=== PATIENT | male | born 1945 | race Caucasian/White ===

== ENCOUNTER 2018-03-08 17:16 | Inpatient (IN) ==
--- NOTE | 2018-03-08 18:53 | XR ---
EXAM DATE: 03/08/2018 6:39 PM EDT AGE/SEX: 72 years / Male INDICATIONS: . Shortness of breath CLINICAL DATA: This is the patient's initial encounter. Patient reports that signs and symptoms have been present for 1 day and indicates a pain score of 0/10. MEDICAL/SURGICAL HISTORY: . Gastroesophageal reflux disease. Chronic obstructive pulmonary dise ase. A-Fib. Hypertension. Arthritis. Skin cancer. . Colostomy. Oral surgery. Cardiac cath. Back surg sudarshan. COMPAR[place]: [facility] [place]. . FINDINGS: Spinal stimulator wires remain in place with previous fusion across the thoracolumbar junction. Stabl e elevated left hemidiaphragm. Bilateral mostly basilar opacity probably scarring and atelectasis. Ol d right rib fractures. No pneumothorax. CONCLUSION: Cardiomegaly with stable basilar density since 2016, probably scarring/fibrosis and atelectasis. Elev ated left hemidiaphragm. Electronically signed by: Priyank Santos MD 03/08/2018 6:52 PM EDT
--- NOTE | 2018-03-08 19:59 | ED ---
HPI General Chief Complaint: Respiratory Symptoms Stated Complaint: Patient states hard time breathing/back pain Time Seen by Provider: 03/08/18 19:53 Source: patient and family Mode of arrival: wheelchair Limitations: no limitations History of Present Illness 72-year-old male presents to the emergency department by private transportation the care of his spouse for complaint of progressively worsening shortness of breath over the past several weeks. Patient states he has been diagnosed with COPD since hospitalization 1 year ago at [facility] through the [place] system. Patient has been on Symbicort and does have a home nebulizer. Patient states that he was never given any medication to use in his nebulizer. Patient states he recently completed 2 courses of a Z-Arie and prednisone taper for his cough within the past 3 weeks. Patient reports symptoms improved but would recur and now worsening. Patient states cough is been productive of yellow and white phlegm. Patient states symptoms have not improved. Patient states that today he actually had a fever of 100.4 F prior to coming to the emergency room. Patient also has history of chronic indwelling suprapubic catheter secondary to neurogenic bladder secondary to sequela from T12-L1 fracture from injury sustained 16 years ago. Patient also has colostomy. Patient states he has had continued to have good urine output and normal bowel output and has not noticed any melena or hematochezia. Patient has had some right lower quadrant abdominal pain. Patient does not report any nausea vomiting or anorexia. Patient reportedly [facility] on [facility]. Due to patient's progressively worsening dyspnea on exertion he decided to present to the emergency department now instead of waiting until Tuesday to see a physician as well as because of developing a fever 100.4 F. Patient took no antipyretics prior to this. Patient denies any history of PE or DVT. Patient did have episode of right sided hest pain earlier today, none now. Patient does not describe his pain as pleuritic in nature. Patient is concerned about a UTI and pneumonia. MD Complaint: Reports shortness of breath, cough and chest pain; Denies pain with inspiration Onset (ago): week(s) Context: Reports recent illness (URI); Denies occurred during exertion, choking/ aspiration, medication noncompliance, allergen exposure, recent travel, smoke/ fume exposure, anxiety, trauma/injury, elevated blood glucose and CO exposure Severity: moderate Consistency/Duration: intermittent and progressively worsening Relieving factors: rest Exacerbating factors: exertion, movement and coughing Known history of: Reports COPD; Denies asthma, congestive heart failure, diabetes, recurrent pneumonia, aspiration pneumonia, HIV, PE, DVT and IVDU Associated symptoms: Reports chest pain (today right sided, none now), fever ( 100.4F), cough, wheezing (intermittent), sputum production (yellow and white after azithromycin), paresthesias (paraplegia), abdominal pain (RLQ) and chest congestion; Denies pain with inspiration, orthopnea, lower extremity pain, polyuria, polydipsia, palpitations, carpopedal spasm, hemoptysis, diaphoresis, nausea/vomiting, syncope, rash, sense of impending doom, dizziness and lightheadedness Treatment prior to arrival: Reports none Related Data Home oxygen amount: 2 liters (prn at night) Home Medications Medication Instructions Recorded Confirmed aspirin 81 mg PO DAILY 03/08/18 03/08/18 budesonide-formoterol [Symbicort] 2 puff INHALATION DAILY 03/08/18 03/08/18 duloxetine [Cymbalta] 60 mg PO DAILY 03/08/18 03/08/18 melatonin 10 mg PO HS 03/08/18 03/08/18 meloxicam [Mobic] 15 mg PO DAILY 03/08/18 03/08/18 metoprolol tartrate 100 mg PO BID 03/08/18 03/08/18 pregabalin [Lyrica] 200 mg PO BID 03/08/18 03/08/18 tramadol 50 mg PO Q8HR PRN 03/08/18 03/08/18 umeclidinium-vilanterol [Anoro 1 inh INHALATION QPM 03/08/18 03/08/18 Ellipta] vitamin B complex 1 tab PO DAILY 03/08/18 03/08/18 Allergies Allergy/AdvReac Type Severity Reaction Status Date / Time *MDRO Multi-Drug Resistant AdvReac Severe Hives Uncoded 03/08/18 18:27 Organism Review of Systems ROS: all other systems reviewed are negative PMFSH History History Provided By: Patient (COPD, paraplegia T12-L1 fracture, suprapubic catheter neurogenic bladder, colostomy, left rib excision, cardiac ablation, anxiety depression) Medical History Medical History Afib (Acute) COPD (chronic obstructive pulmonary disease) (Acute) Colostomy in place (Acute) Paraplegia (Acute) Suprapubic catheter (Acute) Surgical History Surgical History H/O cardiac radiofrequency ablation (Acute) Social History Social History Substance History: No History of Abuse Smoking Status: Former smoker How Often Do You Have a Drink Containing Alcohol: Never Recent Travel in [facility] within the Last 8 Weeks: No Recent Out of Country Travel within the Last 8 Weeks: No Immunization History Tetanus Immunization: <5 Years Exam Narrative Exam Narrative: GENERAL: Well-nourished, well-developed patient. No acute distress no respiratory distress resting upright able to provide his own history GCS 15 SKIN: Focused skin assessment warm/dry. HEAD: Normocephalic. EYES: No scleral icterus. No injection or drainage. NECK: Supple, trachea midline. No JVD or lymphadenopathy. CARDIOVASCULAR: Regular rate and rhythm without murmurs, gallops, or rubs. RESPIRATORY: Breath sounds equal bilaterally. No accessory muscle use. GASTROINTESTINAL: Abdomen soft, non-tender, no guarding no rebound, nondistended. Colostomy left lower quadrant suprapubic catheter in place without any inflammation or purulent drainage or urine leakage nontender to palpation. MUSCULOSKELETAL: No cyanosis, or edema. BACK: Nontender without obvious deformity. No CVA tenderness. Course Initial Documented Vital Signs Temperature 99.6 F 03/08/18 17:17 Pulse Rate 90 03/08/18 17:17 Respiratory Rate 18 03/08/18 17:17 Blood Pressure 143/86 H 03/08/18 17:17 Pulse Oximetry 92 L 03/08/18 17:17 Last Documented Vital Signs Temperature 99.5 F 03/08/18 22:39 Pulse Rate 106 H 03/08/18 22:39 Respiratory Rate 20 03/08/18 22:39 Blood Pressure 141/85 H 03/08/18 22:39 Pulse Oximetry 94 L 03/08/18 22:46 Medical Decision Making MDM Narrative Medical decision making narrative: 72-year-old male presents to the emergency department with complaint of progressively worsening shortness of breath over the past several weeks lung sounds clear to auscultation chest x-ray per reading radiologist shows cardiomegaly chronic changes does not report any acute findings reports stable changes present since comparison chest x-ray from 2016. EKG performed while in triage identified to be sinus rhythm rate 82 no ventricular conduction delay no acute ST elevation or injury pattern no ectopy. IV access obtained specimens collected and sent for resulting urine specimen to be collected and sent for resulting. Repeat temperature will be obtained triage temperature 99.6 F Patient administered DuoNeb updraft with improvement of symptoms and O2 saturation Labs reviewed and patient is total white cell count is 11,500 insignificant elevated however does have left shift will await results of lactic acid patient is not tachycardic here but does show some increased respiratory rate with minimal white cell count will see results of urinalysis as well Lactic acid is not elevated at 1.3 however urinalysis is clearly abnormal patient continues to complain of some right lower quadrant discomfort CT abdomen pelvis ordered CT abdomen and pelvis identifies bilateral hydronephrosis of unclear etiology suprapubic catheter is with in the urinary bladder also noted to have bladder stone per reading radiologist no gi intra-abdominal inflammatory process Patient noted to desaturate off of supplemental oxygen with exertion per family and patient typically runs room air O2 saturations of 91-92% sometimes 93% and uses supplemental oxygen at nighttime however here with minimal exertion increases shortness of breath and work of breathing as well as decrease his saturations to 89% patient with brisk response to 2 L/min supplemental oxygen and his saturations increased to 96% patient reports improvement of breathing and symptomatic relief after bronchodilator nebulized treatments. Patient's case discussed with medicine service for admission. Medical Screen Exam Complete: Yes Emergency Medical Condition: Yes Differential Diagnosis Differential Diagnosis: Dyspnea, exacerbation COPD, CHF, ACS, pneumonia, anemia , UTI, sepsis, PE Medical Records Medical records reviewed: Yes I reviewed the patient's medical records. Lab Data Lab results reviewed: Yes I reviewed the patient's lab results. Result diagrams: 03/08/18 20:10 03/08/18 20:10 Lab Results 03/08/18 03/08/18 03/08/18 Range/Units 20:05 20:05 20:10 WBC 11.5 H (4.0-11.0) th/mm3 RBC 4.72 (4.50-5.90) mil/mm3 Hgb 13.6 (13.0-17.0) gm/dL Hct 41.6 (39.0-51.0) % MCV 88.2 (80.0-100.0) fL MCH 28.8 (27.0-34.0) pg MCHC 32.7 (32.0-36.0) % RDW 15.6 (11.6-17.2) % Plt Count 163 (150-450) th/mm3 MPV 9.7 (7.0-11.0) fL Neut % (Auto) 85.3 H (16.0-70.0) % Lymph % (Auto) 4.1 L (9.0-44.0) % C[place]shaw % (Auto) 9.7 H (0.0-8.0) % Eos % (Auto) 0.5 (0.0-4.0) % Baso % (Auto) 0.4 (0.0-2.0) % Neut # (Auto) 9.8 H (1.8-7.7) th/mm3 Lymph # (Auto) 0.5 L (1.0-4.8) th/mm3 C[place]shaw # (Auto) 1.1 H (0.0-0.9) th/mm3 Eos # (Auto) 0.1 (0.0-0.4) th/mm3 Baso # (Auto) 0.0 (0.0-0.2) th/mm3 WBC Differential . Differential Comment Auto diff final PT (9.8-11.6) sec INR Ratio APTT Cancelled Sodium (136-145) meq/L Potassium (3.5-5.1) meq/L Chloride (98-107) meq/L Carbon Dioxide (21.0-32.0) meq/L Anion Gap (5-15) meq/L BUN (7-18) mg/dL Creatinine (0.60-1.30) mg/dL Estimated GFR (>89) mL/min Random Glucose (74-106) mg/dL Lactic Acid (0.4-2.0) mmol/L Calcium (8.5-10.1) mg/dL Total Bilirubin (0.2-1.0) mg/dL AST (15-37) U/L ALT (12-78) U/L Alkaline Phosphatase (45-117) U/L Troponin I (0.02-0.05) ng/mL B-Natriuretic Peptide 17 (0-100) pg/mL Total Protein (6.4-8.2) g/dL Albumin (3.4-5.0) g/dL Lipase (73-393) U/L Urine Color (Yellw/Straw) Urine Clarity (Clear) Urine pH (5.0-8.5) Ur Specific [place] (1.002-1.035) Urine Protein (Neg-Trace) mg/dL Urine Glucose (UA) (Negative) mg/dL Urine Ketones (Negative) mg/dL Urine Occult Blood (Negative) Urine Nitrate (Negative) Urine Bilirubin (Negative) Urine Urobilinogen (Less than 2) mg/dL Ur Leukocyte Esterase (Negative) Urine RBC (0-3) /hpf Urine WBC (0-5) /hpf Urine WBC Clumps (None) Calcium Oxalate Crystal (None) /hpf Urine Bacteria (None) /hpf Hyaline Casts (0-3) /lpf Urine Mucus (Occasional) /lpf Micro UA Comment Ur Microscopic Review Urine Culture Comments 03/08/18 03/08/18 03/08/18 Range/Units 20:10 20:10 20:10 WBC (4.0-11.0) th/mm3 RBC (4.50-5.90) mil/mm3 Hgb (13.0-17.0) gm/dL Hct (39.0-51.0) % MCV (80.0-100.0) fL MCH (27.0-34.0) pg MCHC (32.0-36.0) % RDW (11.6-17.2) % Plt Count (150-450) th/mm3 MPV (7.0-11.0) fL Neut % (Auto) (16.0-70.0) % Lymph % (Auto) (9.0-44.0) % C[place]shaw % (Auto) (0.0-8.0) % Eos % (Auto) (0.0-4.0) % Baso % (Auto) (0.0-2.0) % Neut # (Auto) (1.8-7.7) th/mm3 Lymph # (Auto) (1.0-4.8) th/mm3 [place]shaw # (Auto) (0.0-0.9) th/mm3 Eos # (Auto) (0.0-0.4) th/mm3 Baso # (Auto) (0.0-0.2) th/mm3 WBC Differential Differential Comment PT 10.7 (9.8-11.6) sec INR 1.1 Ratio APTT 29.9 Sodium 141 (136-145) meq/L Potassium 4.0 (3.5-5.1) meq/L Chloride 104 (98-107) meq/L Carbon Dioxide 30.9 (21.0-32.0) meq/L Anion Gap 6 (5-15) meq/L BUN 13 (7-18) mg/dL Creatinine 1.11 (0.60-1.30) mg/dL Estimated GFR 65 L (>89) mL/min Random Glucose 114 H (74-106) mg/dL Lactic Acid 1.3 (0.4-2.0) mmol/L Calcium 8.5 (8.5-10.1) mg/dL Total Bilirubin 0.6 (0.2-1.0) mg/dL AST 17 (15-37) U/L ALT 19 (12-78) U/L Alkaline Phosphatase 82 (45-117) U/L Troponin I Less than 0.02 L (0.02-0.05) ng/mL B-Natriuretic Peptide (0-100) pg/mL Total Protein 7.1 (6.4-8.2) g/dL Albumin 3.1 L (3.4-5.0) g/dL Lipase 71 L (73-393) U/L Urine Color (Yellw/Straw) Urine Clarity (Clear) Urine pH (5.0-8.5) Ur Specific [place] (1.002-1.035) Urine Protein (Neg-Trace) mg/dL Urine Glucose (UA) (Negative) mg/dL Urine Ketones (Negative) mg/dL Urine Occult Blood (Negative) Urine Nitrate (Negative) Urine Bilirubin (Negative) Urine Urobilinogen (Less than 2) mg/dL Ur Leukocyte Esterase (Negative) Urine RBC (0-3) /hpf Urine WBC (0-5) /hpf Urine WBC Clumps (None) Calcium Oxalate Crystal (None) /hpf Urine Bacteria (None) /hpf Hyaline Casts (0-3) /lpf Urine Mucus (Occasional) /lpf Micro UA Comment Ur Microscopic Review Urine Culture Comments 03/08/18 Range/Units 20:10 WBC (4.0-11.0) th/mm3 RBC (4.50-5.90) mil/mm3 Hgb (13.0-17.0) gm/dL Hct (39.0-51.0) % MCV (80.0-100.0) fL MCH (27.0-34.0) pg MCHC (32.0-36.0) % RDW (11.6-17.2) % Plt Count (150-450) th/mm3 MPV (7.0-11.0) fL Neut % (Auto) (16.0-70.0) % Lymph % (Auto) (9.0-44.0) % [place] % (Auto) (0.0-8.0) % Eos % (Auto) (0.0-4.0) % Baso % (Auto) (0.0-2.0) % Neut # (Auto) (1.8-7.7) th/mm3 Lymph # (Auto) (1.0-4.8) th/mm3 [place] # (Auto) (0.0-0.9) th/mm3 Eos # (Auto) (0.0-0.4) th/mm3 Baso # (Auto) (0.0-0.2) th/mm3 WBC Differential Differential Comment PT (9.8-11.6) sec INR Ratio APTT Sodium (136-145) meq/L Potassium (3.5-5.1) meq/L Chloride (98-107) meq/L Carbon Dioxide (21.0-32.0) meq/L Anion Gap (5-15) meq/L BUN (7-18) mg/dL Creatinine (0.60-1.30) mg/dL Estimated GFR (>89) mL/min Random Glucose (74-106) mg/dL Lactic Acid (0.4-2.0) mmol/L Calcium (8.5-10.1) mg/dL Total Bilirubin (0.2-1.0) mg/dL AST (15-37) U/L ALT (12-78) U/L Alkaline Phosphatase (45-117) U/L Troponin I (0.02-0.05) ng/mL B-Natriuretic Peptide (0-100) pg/mL Total Protein (6.4-8.2) g/dL Albumin (3.4-5.0) g/dL Lipase (73-393) U/L Urine Color Kaylene (Yellw/Straw) Urine Clarity Cloudy H (Clear) Urine pH 8.0 (5.0-8.5) Ur Specific [place] 1.013 (1.002-1.035) Urine Protein 100 H (Neg-Trace) mg/dL Urine Glucose (UA) Negative (Negative) mg/dL Urine Ketones Negative (Negative) mg/dL Urine Occult Blood Small H (Negative) Urine Nitrate Positive H (Negative) Urine Bilirubin Negative (Negative) Urine Urobilinogen Less than 2 (Less than 2) mg/dL Ur Leukocyte Esterase Large H (Negative) Urine RBC 33 H (0-3) /hpf Urine WBC (0-5) /hpf Urine WBC Clumps Many H (None) Calcium Oxalate Crystal Occasional H (None) /hpf Urine Bacteria Many H (None) /hpf Hyaline Casts 6 (0-3) /lpf Urine Mucus Few H (Occasional) /lpf Micro UA Comment Cath-culture ind Ur Microscopic Review Not Reportable Urine Culture Comments Cath-cult indicated Imaging Data Attestation: I personally reviewed and interpreted this imaging study as follows : Radiologist's impression: Chest X-Ray 03/08/18 00:00 CONCLUSION: Cardiomegaly with stable basilar density since 2016, probably scarring/fibrosis and atelectasis. Elevated left hemidiaphragm. Abdomen/Pelvis CT 03/08/18 21:56 CONCLUSION: 1. Severe bilateral hydronephrosis and hydroureter of unclear etiology. 2. Suprapubic catheter with tip in the bladder. Small to moderate amount of urine and a small stone in the bladder. 3. Large left spigelian hernia. Small fat-containing umbilical hernia. 4. No obstruction or acute inflammatory changes of the gastrointestinal tract. 5. Scattered benign appearing hepatic cysts. 6. Right lower lobe masslike opacity stable for many years and felt to be benign. Mild bibasilar atelectasis. ECG Data EKG Prior to Arrival: No Prior ECG tracings: not available for review Interpretation: EKG: Normal sinus rhythm rate 82 and a ventricular conduction delay no acute ST elevation or injury pattern change noted no ectopy Discharge Plan Discharge Disposition Patient Disposition: 30 Still Patient Discharge Condition Condition: Stable Discharge Details Diagnosis: UTI (urinary tract infection), Hydronephrosis, Sepsis, COPD (chronic obstructive pulmonary disease) Physicians Team ED Provider: Cathi Garvey Primary Care Provider: Corbin Orourke V Attending Provider: Tyler Trujillo Other Providers: Tommy Sanders Discharge Interventions Interventions: Vital Signs Last Done: 03/08/18 17:17 Status ED Status: Admitted Patient
[2018-03-08 21:01] LABS: Baso % (Auto) 0.4 % (0.0-2.0); Eos # (Auto) 0.1 th/mm3 (0.0-0.4); Eos % (Auto) 0.5 % (0.0-4.0); Hematocrit 41.6 % (39.0-51.0); Hemoglobin 13.6 gm/dL (13.0-17.0); Lymph # (Auto) 0.5 th/mm3 (1.0-4.8); Lymph % (Auto) 4.1 % (9.0-44.0); Mean Corpuscular HGB Conc 32.7 % (32.0-36.0); Mean Corpuscular Hemoglobin 28.8 pg (27.0-34.0); Mean Corpuscular Volume 88.2 fL (80.0-100.0); Mean Platelet Volume 9.7 fL (7.0-11.0); Mono # (Auto) 1.1 th/mm3 (0.0-0.9); Mono % (Auto) 9.7 % (0.0-8.0); Neut # (Auto) 9.8 th/mm3 (1.8-7.7); Neut % (Auto) 85.3 % (16.0-70.0); Platelet Count 163 th/mm3 (150-450); Red Blood Count 4.72 mil/mm3 (4.50-5.90); Red Cell Distribution Width 15.6 % (11.6-17.2); White Blood Count 11.5 th/mm3 (4.0-11.0)
[2018-03-08 21:06] LABS: Bacteria,Urine Many /hpf; Bilirubin,Urine Negative (Negative); Calcium Oxalate Crystals,Urine Occasional /hpf; Clarity,Urine Cloudy (Clear); Color,Urine Amber (Yellw/Straw); Glucose,Urine (UA) Negative (Negative); Hyaline Casts,Urine 6 /lpf (0-3); Leukocyte Esterase,Urine Large (Negative); Mucus,Urine Few /lpf (Occasional); Nitrite,Urine Positive (Negative); Specific Gravity,Urine 1.013 (1.002-1.035)
[2018-03-08 21:12] LABS: Activated Partial Thrombo Time 29.9 sec (24.3-30.1); INR 1.1 Ratio; Prothrombin Time 10.7 sec (9.8-11.6)
[2018-03-08 21:29] LABS: Alanine Aminotransferase 19 U/L (12-78); Albumin 3.1 g/dL (3.4-5.0); Anion Gap 6 meq/L (5-15); Aspartate Aminotransferase 17 U/L (15-37); Blood Urea Nitrogen 13 mg/dL (7-18); Calcium 8.5 mg/dL (8.5-10.1); Carbon Dioxide 30.9 meq/L (21.0-32.0); Chloride 104 meq/L (98-107); Glomerular Filtration Rate 65 mL/min (>89); Glucose,Random 114 mg/dL (74-106); Lipase 71 U/L (73-393); Sodium 141 meq/L (136-145)
[2018-03-08 21:33] LABS: Alkaline Phosphatase 82 U/L (45-117); Total Protein 7.1 g/dL (6.4-8.2)
[2018-03-08] MEDS ORDERED: Ciprofloxacin 400 MG/200 ML 400 MG/200 ML PIGGYBACK IV.SIG ONE (21:56)
[2018-03-08] MEDS ORDERED: Sodium Chlor 0.9% Inj 500 ML IV.SIG SCH (22:00)
[2018-03-08] MEDS ORDERED: Sod Chloride 0.9% Inj 1,000 ML IV.SIG ONE (22:29)
[2018-03-08] MEDS ORDERED: MethylPREDNISolone Sod Succinate Inj 125 MG/2 ML Vial IV.PUSH ONE (22:42)
--- NOTE | 2018-03-08 23:19 | CT ---
EXAM DATE: 03/08/2018 11:05 PM EDT AGE/SEX: 72 years / Male INDICATIONS: Right side abdominal pain. Shortness of breath. CLINICAL DATA: This is the patient's initial encounter. Patient reports that signs and symptoms have been present for 1 day and indicates a pain score of 7/10. MEDICAL/SURGICAL HISTORY: . A-fib. Kyphoplasty. Colostomy. Pain stimulator. RADIATION DOSE: 27.30 CTDI (mGy) ; Patient body habitus COMPARISON: [facility] – [place], [place] PULMONARY ANGIOGRAM, 01/19/2013. . TECHNIQUE: Multiple contiguous axial images were obtained through the abdomen. Images were obtained using multiple row detector helical technique. Using automated exposure control and adjustment of the mA and/or kV according to patient size, radiation dose was kept as low as reasonably achievable to o btain optimal diagnostic quality images. DICOM format image data is available electronically for rev iew and comparison. FINDINGS: There is severe bilateral hydronephrosis and hydroureter. The etiology is uncertain. I don't see a ur eteral stone. There is a suprapubic catheter in the urinary bladder. I would estimate approximately 1 50 cc of urine in the bladder at the time of imaging. A 4 mm calculus is seen dependently in the urin rex bladder. There is nonspecific enlargement of the prostate. Scattered benign-appearing cysts of the liver measuring up to 3.6 cm. Noncontrast appearance of the s pleen, pancreas and adrenal glands is within normal limits. I don't see an obstruction or acute inflammatory changes of the gastrointestinal tract. There is a la rge left lower quadrant abdominal wall hernia containing loops of small and large bowel. The defect m easures approximately 6.4 cm across. There is a small fat-containing hernia at the umbilicus. 2.7 cm masslike opacity is seen of the right lower lobe and appears similar to the CT pulmonary angio gram back in 2012. Otherwise, there is mild bibasilar atelectasis. No acute bony abnormalities are de monstrated. CONCLUSION: 1. Severe bilateral hydronephrosis and hydroureter of unclear etiology. 2. Suprapubic catheter with tip in the bladder. Small to moderate amount of urine and a small stone in the bladder. 3. Large left spigelian hernia. Small fat-containing umbilical hernia. 4. No obstruction or acute inflammatory changes of the gastrointestinal tract. 5. Scattered benign appearing hepatic cysts. 6. Right lower lobe masslike opacity stable for many years and felt to be benign. Mild bibasilar ate lectasis. Electronically signed by: Frank Wilde MD 03/08/2018 11:18 PM EDT
[2018-03-08] MEDS ORDERED: Piperacil/Tazo 4.5 GM Premix 4.5 GM/100 ML BAG IV.SIG ONE (23:32)
[2018-03-08] MEDS ORDERED: Bisacodyl 10 MG Supp RECTAL PRN (23:57)
[2018-03-09] MEDS: Sod Chloride 0.9% Inj 1,000 ML IV.CONT SCH ×3 (01:48→23:30)
[2018-03-09] MEDS ORDERED: Acetaminophen 325 MG Tablet PO PRN (02:18)
--- NOTE | 2018-03-09 03:25 | P.HPIM ---
History of Present Illness Primary Care Physician: Corbin Orourke MD History of Present Illness: 72-year-old male with a history of paraplegia, chronic suprapubic catheter, diverting colostomy, COPD who presents with a 3-week history of progressively worsening shortness of breath. Denies any cough. Patient also reports sharp intermittent suprapubic pain over the past 2 days. Reports fever measured by his at home of 100.4, prompting him to come to the emergency room. Patient has indwelling suprapubic catheter. Denies any chest pain. Denies any nausea or vomiting. Inpatient Certification: I certify that the inpatient services were ordered in accordance with Medicare regulations governing the order. This includes certification that hospital inpatient services are reasonable and necessary and in the case of services not specified as inpatient-only under 42 CFR 419.22(n), that they are appropriately provided as inpatient services in accordance to with the 2-midnight benchmark under 43 CFR 412.3(e) Estimated Total Length of Stay (Days): 3 Plans for Post Hospital Care: Not yet determined PMFSH - History History Provided By: Patient - Medical History Medical History: Medical History (Last Reviewed 03/09/18 @ 03:39 by Tyler Trujillo MD) Afib COPD (chronic obstructive pulmonary disease) Colostomy in place Paraplegia Suprapubic catheter - Surgical History Surgical History: Surgical History (Last Reviewed 03/09/18 @ 03:39 by Tyler Trujillo MD) H/O cardiac radiofrequency ablation - Family History Family History: Family History (Last Updated 03/09/18 @ 03:40 by Tyler Trujillo MD) Other Family history non-contributory - Social History I have reviewed the patient's Social History: Yes - Tobacco History Second Hand Smoke Exposure: No Tobacco Use In Past 30 Days: No Smoking Status: Former smoker Tobacco Type: Cigarettes - Alcohol History How Often Do You Have a Drink Containing Alcohol: Never - Substance Use History Substance History: Past History - Substance Use Type Marijuana Route Used: Inhalation Reason for Use: Calm Down, Feels Good - Travel History Recent Travel in the [place] Within the Last 8 Weeks: No Recent Travel Out of the Country Within the Last 8 Weeks: No - Immunization History Tetanus Immunization: <5 Years Medications and Allergies Active Medications: Active Medications Acetaminophen (Tylenol) 650 mg PO Q4H PRN PRN Reason: fever > 100.4/pain 1-10 Last Admin: 03/09/18 02:31 Dose: 650 mg Al Hydroxide/Mg Hydroxide (Milk Of Magnesia Liq) 30 ml PO Q12H PRN PRN Reason: Mild Constipation Bisacodyl (Dulcolax Supp) 10 mg RECTAL DAILY PRN PRN Reason: SEVERE CONSITIPATION Budesonide/Formoterol Fumarate (Symbicort 80/4.5 Mcg Inh) 2 puff INH DAILY [facility] Piperacillin/Tazobactam/Dextrose (Zosyn 4.5 Gm Premix) 4.5 gm in 100 mls @ 200 mls/hr IV.SIG Q6H [facility] Sodium Chloride (Ns Inj) 1,000 mls @ 100 mls/hr IV.CONT .Q10H [facility] Last Admin: 03/09/18 01:48 Dose: 100 mls/hr Lactulose (Lactulose Liq) 30 ml PO DAILY PRN PRN Reason: SEVERE CONSITIPATION Melatonin (Melatonin) 10 mg PO HS [facility] Metoprolol Tartrate (Lopressor) 100 mg PO BID [facility] Senna/Docusate Sodium (Janay-Colace) 1 tab PO BID [facility] Sennosides (Senokot) 17.2 mg PO Q12H PRN PRN Reason: Moderate Constipation Sodium Chloride (Ns Flush) 2 ml IV.FLUSH PRN PRN PRN Reason: FLUSH AFTER USING IV ACCESS Umeclidinium/Vilanterol (Anoro-Ellipta 62.5/25 Mcg Inh) 1 puff INH DAILY@1800 [facility] Allergies Allergy/AdvReac Type Severity Reaction Status Date / Time *MDRO Multi-Drug Resistant AdvReac Severe Hives Uncoded 03/08/18 18:27 Organism Home Medications Medication Instructions Recorded Confirmed Type aspirin 81 mg PO DAILY 03/08/18 03/08/18 History budesonide-formoterol [Symbicort] 2 puff INHALATION DAILY 03/08/18 03/08/18 History duloxetine [Cymbalta] 60 mg PO DAILY 03/08/18 03/08/18 History melatonin 10 mg PO HS 03/08/18 03/08/18 History meloxicam [Mobic] 15 mg PO DAILY 03/08/18 03/08/18 History metoprolol tartrate 100 mg PO BID 03/08/18 03/08/18 History pregabalin [Lyrica] 200 mg PO BID 03/08/18 03/08/18 History tramadol 50 mg PO Q8HR PRN 03/08/18 03/08/18 History umeclidinium-vilanterol [Anoro 1 inh INHALATION QPM 03/08/18 03/08/18 History Ellipta] vitamin B complex 1 tab PO DAILY 03/08/18 03/08/18 History Exam Vital signs: Vital Signs 03/08/18 17:17 03/08/18 20:04 03/08/18 20:05 Temperature 99.6 F Pulse Rate 90 Respiratory Rate 18 21 Blood Pressure 143/86 H Pulse Oximetry 92 L 89 L 89 L 03/08/18 20:10 03/08/18 20:32 03/08/18 22:39 Temperature 99.5 F Pulse Rate 106 H Respiratory Rate 20 Blood Pressure 141/85 H Pulse Oximetry 94 L 96 90 L 03/08/18 22:46 03/08/18 23:57 03/09/18 01:44 Temperature 98.6 F Pulse Rate 90 Respiratory Rate 20 Blood Pressure 174/79 H Pulse Oximetry 94 L 96 94 L Intake & Output 03/08/18 03/08/18 03/09/18 06:59 18:59 06:59 Intake Total 1900 / 1900 Output Total 1050 / 1050 Balance 850 / 850 Weight 115.666 kg 115.666 kg Intake: IV 1900 / 1900 Cipro 400 MG/200 ML Inj 400 mg 200 / 200 In 200 ml @ 200 mls/hr IV.SIG ONCE ONE Rx#:[id number] Zosyn 4.5 GM Premix 4.5 gm In 100 / 100 100 ml @ 200 mls/hr IV.SIG ONCE ONE Rx#:[id number] NS Inj 1,000 ML @ Wide Open IV. 1000 / 1000 SIG BOLUS ONE Rx#:[id number] NS Inj 500 ML @ 1000 mls/hr IV. 500 / 500 SIG BOLUS VENKAT Rx#:[id number] Rocephin Inj 1,000 MG In NS Inj 100 / 100 100 ML @ 200 mls/hr IV.SIG ONCE ONE Rx#:[id number] Output: Urine Amount (Catheter) 1050 / 1050 Suprapubic 1050 / 1050 Other: Weight On Admission 115.66 kg Narrative: GENERAL: Patient sitting up in bed. Appears comfortable. Alert and oriented x3. SKIN: Warm and dry. HEAD: Atraumatic. Normocephalic. EYES: Pupils equal and round. No scleral icterus. No injection or drainage. ENT: No nasal bleeding or discharge. Mucous membranes pink and moist. NECK: Trachea midline. No JVD. CARDIOVASCULAR: Regular rate and rhythm. RESPIRATORY: No accessory muscle use. Clear to auscultation. Breath sounds equal bilaterally. GASTROINTESTINAL: Abdomen soft, non-tender, nondistended. Hepatic and splenic margins not palpable. Left lower quadrant colostomy with minimal surrounding erythema. MUSCULOSKELETAL: Extremities without clubbing, cyanosis, or edema. No obvious deformities. NEUROLOGICAL: Awake and alert. No obvious cranial nerve deficits. Motor grossly within normal limits. Five out of 5 muscle strength in the arms and legs. Normal speech. PSYCHIATRIC: Appropriate mood and affect; insight and judgment normal. Results - Labs CBC & Chem 7: 03/08/18 20:10 03/08/18 20:10 Labs: Short CBC 03/08/18 Range/Units 20:10 WBC 11.5 H (4.0-11.0) th/mm3 Hgb 13.6 (13.0-17.0) gm/dL Hct 41.6 (39.0-51.0) % Plt Count 163 (150-450) th/mm3 BMP 03/08/18 20:10 Sodium 141 Potassium 4.0 Chloride 104 Carbon Dioxide 30.9 BUN 13 Creatinine 1.11 Calcium 8.5 Cardiac Enzymes 03/08/18 Range/Units 20:10 Troponin I Less than 0.02 L (0.02-0.05) ng/mL Liver Function 03/08/18 Range/Units 20:10 Total Bilirubin 0.6 (0.2-1.0) mg/dL AST 17 (15-37) U/L ALT 19 (12-78) U/L Alkaline Phosphatase 82 (45-117) U/L Albumin 3.1 L (3.4-5.0) g/dL Urine 03/08/18 Range/Units 20:10 Urine Color Kaylene (Yellw/Straw) Urine Clarity Cloudy H (Clear) Urine pH 8.0 (5.0-8.5) Ur Specific Sturgeon 1.013 (1.002-1.035) Urine Protein 100 H (Neg-Trace) mg/dL Urine Glucose (UA) Negative (Negative) mg/dL - Imaging Impressions Chest X-Ray 03/08/18 00:00 CONCLUSION: Cardiomegaly with stable basilar density since 2016, probably scarring/fibrosis and atelectasis. Elevated left hemidiaphragm. Abdomen/Pelvis CT 03/08/18 21:56 CONCLUSION: 1. Severe bilateral hydronephrosis and hydroureter of unclear etiology. 2. Suprapubic catheter with tip in the bladder. Small to moderate amount of urine and a small stone in the bladder. 3. Large left spigelian hernia. Small fat-containing umbilical hernia. 4. No obstruction or acute inflammatory changes of the gastrointestinal tract. 5. Scattered benign appearing hepatic cysts. 6. Right lower lobe masslike opacity stable for many years and felt to be benign. Mild bibasilar atelectasis. Caprini VTE Risk Assessment Caprini VTE Risk Assessment: Moderate/High Risk (score >= 2) Caprini Risk Assessment Model: Point Value = 1 Point Value = 2 Point Value = 3 Point Value = 5 Age 41-60 Minor surgery BMI > 25 kg/m2 Swollen legs Varicose veins or History of unexplained or recurrent spontaneous Oral contraceptives or hormone replacement Sepsis (< 1 month) Serious lung disease, including pneumonia (< 1 month) Abnormal pulmonary function Acute myocardial infarction Congestive heart failure (< 1 month) History of inflammatory bowel disease Medical patient at bed rest Age 61-74 Arthroscopic surgery Major open surgery (> 45 min) Laparoscopic surgery (> 45 min) Malignancy Confined to bed (> 72 hours) Immobilizing plaster cast Central venous access Age >= 75 History of VTE Family history of VTE Factor V Leiden Prothrombin [id number] Lupus anticoagulant Anticardiolipin antibodies Elevated serum homocysteine Heparin-induced thrombocytopenia Other congenital or acquired thrombophilia Stroke (< 1 month) Elective arthroplasty Hip, pelvis, or leg fracture Acute spinal cord injury (< 1 month) Prophylaxis Regimen: Total Risk Factor Score Risk Level Prophylaxis Regimen 0-1 Low Early ambulation 2 Moderate Order ONE of the following: *Sequential Compression Device (SCD) *Heparin 5000 units SQ BID 3-4 Higher Order ONE of the following medications: *Heparin 5000 units SQ TID *Enoxaparin/Lovenox 40 mg SQ daily (WT < 150 kg, CrCl > 30 mL/min) *Enoxaparin/Lovenox 30 mg SQ daily (WT < 150 kg, CrCl > 10-29 mL/min) *Enoxaparin/Lovenox 30 mg SQ BID (WT < 150 kg, CrCl > 30 mL/min) AND/OR *Sequential Compression Device (SCD) 5 or more Highest Order ONE of the following medications: *Heparin 5000 units SQ TID (Preferred with Epidurals) *Enoxaparin/Lovenox 40 mg SQ daily (WT < 150 kg, CrCl > 30 mL/min) *Enoxaparin/Lovenox 30 mg SQ daily (WT < 150 kg, CrCl > 10-29 mL/min) *Enoxaparin/Lovenox 30 mg SQ BID (WT < 150 kg, CrCl > 30 mL/min) AND *Sequential Compression Device (SCD) Assessment and Plan - Plan //Sepsis. //Severe bilateral hydronephrosis //Complex UTI -Tachycardia, tachypnea on admission. Lactic acid 1.3. CT abdomen with severe bilateral hydronephrosis and hydroureter Indwelling suprapubic catheter -Urinalysis positive for UTI. Broad-spectrum antibiotics. Follow-up urine culture. //Severe bilateral hydronephrosis. //Indwelling suprapubic catheter Consult urology. Suprapubic catheter will have to be exchanged by urology. //Suspected COPD exacerbation -Chest x-ray with no acute findings. Duo nebs, steroids. Monitor. Discussed Condition With: Patient, nurse, ED physician. H&P: Quality - VTE Deep Vein Thrombosis/Pulmonary Embolism Present on Admission: No
[2018-03-09] MEDS: Azithromycin Inj 500 MG in Sodium Chlor 0.9% Inj 250 ML IV.SIG SCH (04:23)
[2018-03-09] MEDS: Piperacil/Tazo 4.5 GM Premix 4.5 GM/100 ML BAG IV.SIG SCH ×4 (05:26→23:29)
[2018-03-09 08:10] LABS: Baso % (Auto) 0.1 % (0.0-2.0); Hematocrit 40.8 % (39.0-51.0); Hemoglobin 13.7 gm/dL (13.0-17.0); Lymph # (Auto) 0.3 th/mm3 (1.0-4.8); Lymph % (Auto) 3.3 % (9.0-44.0); Mean Corpuscular HGB Conc 33.6 % (32.0-36.0); Mean Corpuscular Hemoglobin 29.9 pg (27.0-34.0); Mean Corpuscular Volume 88.9 fL (80.0-100.0); Mean Platelet Volume 9.4 fL (7.0-11.0); Mono # (Auto) 0.2 th/mm3 (0.0-0.9); Mono % (Auto) 2.1 % (0.0-8.0); Neut # (Auto) 8.3 th/mm3 (1.8-7.7); Neut % (Auto) 94.5 % (16.0-70.0); Platelet Count 142 th/mm3 (150-450); Red Blood Count 4.58 mil/mm3 (4.50-5.90); Red Cell Distribution Width 15.5 % (11.6-17.2); White Blood Count 8.8 th/mm3 (4.0-11.0)
[2018-03-09 08:44] LABS: Albumin 2.9 g/dL (3.4-5.0); Anion Gap 6 meq/L (5-15); Aspartate Aminotransferase 10 U/L (15-37); Blood Urea Nitrogen 13 mg/dL (7-18); Calcium 8.4 mg/dL (8.5-10.1); Carbon Dioxide 30.2 meq/L (21.0-32.0); Chloride 107 meq/L (98-107); Glomerular Filtration Rate 75 mL/min (>89); Glucose,Random 177 mg/dL (74-106); Potassium 4.3 meq/L (3.5-5.1); Sodium 143 meq/L (136-145)
[2018-03-09 08:49] LABS: Alanine Aminotransferase 19 U/L (12-78); Alkaline Phosphatase 76 U/L (45-117); Total Protein 7.1 g/dL (6.4-8.2)
[2018-03-09] MEDS: predniSONE 20 MG Tablet PO SCH (09:30)
[2018-03-09] MEDS: Senna/Docusate Sodium 8.6/50 MG Tablet PO SCH ×2 (09:30→21:26)
[2018-03-09] MEDS: Metoprolol Tartrate 100 MG Tablet PO SCH ×2 (09:31→21:26)
--- NOTE | 2018-03-09 10:31 | MB ---
cc: Randy Reid DO DATE: 03/09/2018 HISTORY OF PRESENT ILLNESS: Mr. Walter is a very pleasant 72-year-old male, who presents with shortness of breath and some back pain. According to report, his temperature was 100.4 at home. This morning, the patient is having trouble remembering exactly what brought him into the hospital, so some of this information will be taken from the chart. He denies any nausea or vomiting. He states that he had a suprapubic tube placed approximately 3 years ago and prior to that time, he was performing intermittent catheterization. His SP tube is due for change as it has changed monthly. 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 PAST MEDICAL HISTORY: His medical history of includes AFib, COPD, paraplegia. PAST SURGICAL HISTORY: Noted for colostomy and suprapubic tube catheter as well as cardiac ablation. FAMILY HISTORY: Noncontributory. SOCIAL HISTORY: Former smoker. Denies drinking alcohol. Denies substance abuse. REVIEW OF SYSTEMS: He denies chest pain or abdominal pain at present; he denies fever. He denies skin lesions. He does note gait disturbances as he is not able to ambulate. He does note recurrent urinary tract infections with sediment. The remaining review of systems were reviewed and are negative. For ALLERGIES and medications, please refer to the chart. PHYSICAL EXAMINATION: VITAL SIGNS: Vitals this morning: Temperature 97.3, heart rate 82, respiratory 18, 172/87 blood pressure, 96% on room air. GENERAL: He is an obese 72-year-old male in no acute distress. HEENT: Normocephalic, atraumatic. Pupils equal, round, regular, react to light, extraocular movements intact. NECK: Supple. HEART: Regular rate and rhythm. LUNGS: Clear. ABDOMEN: Soft, nontender and nondistended. SP tube is in place with sediment noted draining through the tube. GENITOURINARY: Normal phallus. Testes descended. EXTREMITIES: Show no cyanosis, clubbing, or edema. NEUROLOGIC: Cranial nerves II-XII are intact. LABORATORY DATA: White count 8.8, hemoglobin 13.7, hematocrit 40.8, platelet count of 142. Sodium 143, potassium 4.3, chloride 107, CO2 30.2, BUN of 30, creatinine 0.98, glucose is 177. Urinalysis: Nitrites positive, many white cell clumps, 33 red cells. Cultures are currently pending. IMAGING STUDIES: CT scan demonstrates severe bilateral hydronephrosis and hydroureter of unclear etiology. Suprapubic catheter with tip in the bladder. Small amount of urine within the bladder with a small stone in the bladder; left Spigelian hernia. ASSESSMENT AND PLAN: A 72-year-old male with history of paraplegia after a fall from a roof 16 years ago with indwelling suprapubic tube catheter. We will change suprapubic catheter today. Creatinine is within normal limits with severe bilateral hydronephrosis. This is probably chronic hydronephrosis, but we will obtain a renal scan to rule out any evidence of any obstruction. It could also be due to reflux. Check urine cultures. Continue antibiotics. Thank you for consult and allowing me to participate in the care of this patient. DO BUTCH Alfaro/vinnie , 08:52 AM , 09:02 AM
--- NOTE | 2018-03-09 11:11 | P.CONID ---
History of Present Illness Service: Infectious disease Consult date: 03/09/18 Requesting Physician: Tyler Trujillo Reason for Consult: Evaluate patient with UTI, history of ESBL positive Primary Care Provider: Corbin Orourke MD History of Present Illness: Patient seen and examined. Records reviewed. Patient is a 72-year-old male, presented to the hospital complaining of 3-week history of worsening shortness of breath. He denies any cough or chest congestion or any chest pain. He also noted some on and off pain in his suprapubic region, and he has a suprapubic catheter. It gets changed once a month, and it was last changed close to about a month ago. A nurse comes to his home and changes the catheter. He has had some low-grade fevers at home. He has not had any nausea or vomiting. He thinks the last time he had a urinary tract infection was about a year ago. Since admission he has not had any fever. His WBC was initially 11,000, and is down to normal. Urinalysis is showing evidence of UTI. CT of the abdomen and pelvis is showing evidence of bilateral hydronephrosis. Urology has seen the patient, and has ordered a renal scan. He has had previous history of recurrent UTI, and the last UTI recorded here is from 2016, and at that time he had a Proteus ESBL positive organism. Patient currently is on IV Zosyn. Overall his shortness of breath has improved. His chest x-ray on admission showed cardiomegaly with some stable bibasilar densities. SPC was changed this morning. Infectious disease consultation has been requested to assist with evaluation and treatment of UTI, and patient having prior history of ESBL positive organisms. Review of Systems Constitutional: Reports fever(s), Reports lack of energy, Denies chills, Denies night sweats Eyes: Denies discharge, Denies dry eyes Ears, Nose, Mouth, and Throat: Denies difficulty swallowing, Denies mouth pain, Denies nasal discharge, Denies sore throat Cardiovascular: Reports shortness of breath, Denies chest pain Respiratory: Reports shortness of breath, Denies chest congestion, Denies cough Gastrointestinal: Reports abdominal pain, Denies nausea, Denies pain with swallowing, Denies vomiting Genitourinary: Denies penile discharge, Denies scrotal swelling, Denies testicle pain Skin/Breast: Denies rash, Denies sores Neurologic: Reports localized weakness PMFSH - History History Provided By: Patient - Medical History Medical History: Medical History (Last Reviewed 03/09/18 @ 12:39 by Claire Velarde MD) Afib COPD (chronic obstructive pulmonary disease) Colostomy in place ESBL (extended spectrum beta-lactamase) producing bacteria infection Osteomyelitis Paraplegia Recurrent UTI Suprapubic catheter - Surgical History Surgical History: Surgical History (Last Reviewed 03/09/18 @ 12:39 by Claire Velarde MD) H/O cardiac radiofrequency ablation - Family History Family History: Family History (Last Reviewed 03/09/18 @ 12:39 by Claire Velarde MD) Other Family history non-contributory - Tobacco History Second Hand Smoke Exposure: No Tobacco Use In Past 30 Days: No Smoking Status: Former smoker Tobacco Type: Cigarettes - Alcohol History How Often Do You Have a Drink Containing Alcohol: Never - Substance Use History Substance History: Past History - Substance Use Type Marijuana Route Used: Inhalation Reason for Use: Calm Down, Feels Good - Travel History Recent Travel in the [place] Within the Last 8 Weeks: No Recent Travel Out of the Country Within the Last 8 Weeks: No - Immunization History Tetanus Immunization: <5 Years Medications and Allergies Active Medications: Active Medications Acetaminophen (Tylenol) 650 mg PO Q4H PRN PRN Reason: fever > 100.4/pain 1-10 Last Admin: 03/09/18 02:31 Dose: 650 mg Al Hydroxide/Mg Hydroxide (Milk Of Stephen Nichole) 30 ml PO Q12H PRN PRN Reason: Mild Constipation Albuterol (Duoneb Neb (Suki)) 1 ampul NEB Q6HR NEB SUKI Last Admin: 03/09/18 09:59 Dose: 1 ampul Albuterol (Ventolin Hfa Inh) 2 puff INH Q4H PRN PRN Reason: SHORTNESS OF BREATH/WHEEZING Bisacodyl (Dulcolax Supp) 10 mg RECTAL DAILY PRN PRN Reason: SEVERE CONSITIPATION Budesonide/Formoterol Fumarate (Symbicort 80/4.5 Mcg Inh) 2 puff INH DAILY SUKI Piperacillin/Tazobactam/Dextrose (Zosyn 4.5 Gm Premix) 4.5 gm in 100 mls @ 200 mls/hr IV.SIG Q6H SUKI Last Infusion: 03/09/18 05:56 Dose: Infused Sodium Chloride (Ns Inj) 1,000 mls @ 100 mls/hr IV.CONT .Q10H [facility] Last Admin: 03/09/18 01:48 Dose: 100 mls/hr Azithromycin 500 mg/ Sodium (Chloride) 250 mls @ 250 mls/hr IV.SIG Q24H [facility] Last Infusion: 03/09/18 05:23 Dose: Infused Lactulose (Lactulose Liq) 30 ml PO DAILY PRN PRN Reason: SEVERE CONSITIPATION Melatonin (Melatonin) 10 mg PO [facility] Metoprolol Tartrate (Lopressor) 100 mg PO BID [facility] Last Admin: 03/09/18 09:31 Dose: 100 mg Prednisone (Deltasone) 40 mg PO DAILY [facility] Last Admin: 03/09/18 09:30 Dose: 40 mg Senna/Docusate Sodium (Janay-Colace) 1 tab PO BID [facility] Last Admin: 03/09/18 09:30 Dose: 1 tab Sennosides (Senokot) 17.2 mg PO Q12H PRN PRN Reason: Moderate Constipation Sodium Chloride (Ns Flush) 2 ml IV.FLUSH BID [facility] Last Admin: 03/09/18 09:31 Dose: 2 ml Sodium Chloride (Ns Flush) 2 ml IV.FLUSH PRN PRN PRN Reason: FLUSH AFTER USING IV ACCESS Umeclidinium/Vilanterol (Anoro-Ellipta 62.5/25 Mcg Inh) 1 puff INH DAILY@1800 [facility] Allergies Allergy/AdvReac Type Severity Reaction Status Date / Time *MDRO Multi-Drug Resistant AdvReac Severe Hives Uncoded 03/08/18 18:27 Organism Home Medications Medication Instructions Recorded Confirmed Type aspirin 81 mg PO DAILY 03/08/18 03/08/18 History budesonide-formoterol [Symbicort] 2 puff INHALATION DAILY 03/08/18 03/08/18 History duloxetine [Cymbalta] 60 mg PO DAILY 03/08/18 03/08/18 History melatonin 10 mg PO HS 03/08/18 03/08/18 History meloxicam [Mobic] 15 mg PO DAILY 03/08/18 03/08/18 History metoprolol tartrate 100 mg PO BID 03/08/18 03/08/18 History pregabalin [Lyrica] 200 mg PO BID 03/08/18 03/08/18 History tramadol 50 mg PO Q8HR PRN 03/08/18 03/08/18 History umeclidinium-vilanterol [Anoro 1 inh INHALATION QPM 03/08/18 03/08/18 History Ellipta] vitamin B complex 1 tab PO DAILY 03/08/18 03/08/18 History Exam Vital signs: Vital Signs 03/08/18 17:17 03/08/18 20:04 03/08/18 20:05 Temperature 99.6 F Pulse Rate 90 Respiratory Rate 18 21 Blood Pressure 143/86 H Pulse Oximetry 92 L 89 L 89 L 03/08/18 20:10 03/08/18 20:32 03/08/18 22:39 Temperature 99.5 F Pulse Rate 106 H Respiratory Rate 20 Blood Pressure 141/85 H Pulse Oximetry 94 L 96 90 L 03/08/18 22:46 03/08/18 23:57 03/09/18 01:44 Temperature 98.6 F Pulse Rate 90 Respiratory Rate 20 Blood Pressure 174/79 H Pulse Oximetry 94 L 96 94 L 03/09/18 03:26 03/09/18 07:30 03/09/18 09:59 Temperature 98.0 F 97.3 F L Pulse Rate 88 82 84 Respiratory Rate 17 18 17 Blood Pressure 185/89 H 172/87 H Pulse Oximetry 94 L 96 03/09/18 10:37 Temperature Pulse Rate Respiratory Rate Blood Pressure Pulse Oximetry 96 Intake & Output 03/08/18 03/09/18 03/09/18 18:59 06:59 18:59 Intake Total 2250 / 2250 Output Total 1050 / 1050 Balance 1200 / 1200 Weight 115.666 kg 115.666 kg Intake: IV 2250 / 2250 Azithromycin Inj 500 MG In NS 250 / 250 Inj 250 ML @ 250 mls/hr IV.SIG Q24H SUKI Rx#:[id number] Cipro 400 MG/200 ML Inj 400 mg 200 / 200 In 200 ml @ 200 mls/hr IV.SIG ONCE ONE Rx#:[id number] Zosyn 4.5 GM Premix 4.5 gm In 200 / 200 100 ml @ 200 mls/hr IV.SIG Q6H SUKI Rx#:[id number] NS Inj 1,000 ML @ Wide Open IV. 1000 / 1000 SIG BOLUS ONE Rx#:[id number] NS Inj 500 ML @ 1000 mls/hr IV. 500 / 500 SIG BOLUS SUKI Rx#:[id number] Rocephin Inj 1,000 MG In NS Inj 100 / 100 100 ML @ 200 mls/hr IV.SIG ONCE ONE Rx#:[id number] Output: Urine Amount (Catheter) 1050 / 1050 Suprapubic 1050 / 1050 Other: Weight On Admission 115.66 kg Narrative: Physical examination GENERAL: Patient is a well-nourished, well-developed male, awake and alert, not in respiratory distress. SKIN: Cool and dry. No generalized rash, no ecchymoses and no evidence of embolic lesions. HEAD: Atraumatic. Normocephalic. No temporal wasting, or tenderness. EYES: [place] conjunctiva. No petechia or hemorrhage. Pupils equal, round and reactive to light. Extraocular movements full and intact. No scleral icterus. No injection or drainage. EARS, NOSE AND THROAT: Nose without bleeding or purulent nasal discharge. No sinus tenderness. Mucous membranes pink and moist. No oral lesions noted. No exudate. No oral thrush. NECK: Trachea midline. Supple and not tender, no meningeal signs CARDIOVASCULAR: Regular rate and rhythm. No murmurs, rubs or gallops heard RESPIRATORY: Clear to auscultation. Breath sounds equal bilaterally. No rales , wheezing or rhonchi ABDOMEN: Soft, obese, non-tender, nondistended. Bowel sounds present and normoactive. No guarding. No rebound. Has colostomy on left side and has peristomal hernia. SPC site looks ok. EXTREMITIES: No clubbing, cyanosis, or edema. No calf tenderness. Well perfused and warm. NEUROLOGICAL: Awake and alert. Cranial nerves grossly intact. No movement in his RLE, has some in LLE. Good motor strength in BUE PSYCHIATRIC: Normal affect, calm and cooperative. LINE: No evidence of infection Results - Labs CBC & Chem 7: 03/09/18 07:06 03/09/18 07:06 Labs: Laboratory Results - last 24 hr 03/08/18 03/08/18 03/08/18 20:05 20:05 20:10 WBC 11.5 H RBC 4.72 Hgb 13.6 Hct 41.6 MCV 88.2 MCH 28.8 MCHC 32.7 RDW 15.6 Plt Count 163 MPV 9.7 Neut % (Auto) 85.3 H Lymph % (Auto) 4.1 L [place] % (Auto) 9.7 H Eos % (Auto) 0.5 Baso % (Auto) 0.4 Neut # (Auto) 9.8 H Lymph # (Auto) 0.5 L [place] # (Auto) 1.1 H Eos # (Auto) 0.1 Baso # (Auto) 0.0 WBC Differential . Differential Comment Auto diff final PT INR APTT Cancelled Sodium Potassium Chloride Carbon Dioxide Anion Gap BUN Creatinine Estimated GFR Random Glucose Lactic Acid Calcium Total Bilirubin AST ALT Alkaline Phosphatase Troponin I B-Natriuretic Peptide 17 Total Protein Albumin Lipase Urine Color Urine Clarity Urine pH Ur Specific [place] Urine Protein Urine Glucose (UA) Urine Ketones Urine Occult Blood Urine Nitrate Urine Bilirubin Urine Urobilinogen Ur Leukocyte Esterase Urine RBC Urine WBC Urine WBC Clumps Calcium Oxalate Crystal Urine Bacteria Hyaline Casts Urine Mucus Micro UA Comment Ur Microscopic Review Urine Culture Comments 03/08/18 03/08/18 03/08/18 20:10 20:10 20:10 WBC RBC Hgb Hct MCV MCH MCHC RDW Plt Count MPV Neut % (Auto) Lymph % (Auto) [place] % (Auto) Eos % (Auto) Baso % (Auto) Neut # (Auto) Lymph # (Auto) [place] # (Auto) Eos # (Auto) Baso # (Auto) WBC Differential Differential Comment PT 10.7 INR 1.1 APTT 29.9 Sodium 141 Potassium 4.0 Chloride 104 Carbon Dioxide 30.9 Anion Gap 6 BUN 13 Creatinine 1.11 Estimated GFR 65 L Random Glucose 114 H Lactic Acid 1.3 Calcium 8.5 Total Bilirubin 0.6 AST 17 ALT 19 Alkaline Phosphatase 82 Troponin I Less than 0.02 L B-Natriuretic Peptide Total Protein 7.1 Albumin 3.1 L Lipase 71 L Urine Color Urine Clarity Urine pH Ur Specific [place] Urine Protein Urine Glucose (UA) Urine Ketones Urine Occult Blood Urine Nitrate Urine Bilirubin Urine Urobilinogen Ur Leukocyte Esterase Urine RBC Urine WBC Urine WBC Clumps Calcium Oxalate Crystal Urine Bacteria Hyaline Casts Urine Mucus Micro UA Comment Ur Microscopic Review Urine Culture Comments 03/08/18 03/09/18 03/09/18 20:10 07:06 07:06 WBC 8.8 RBC 4.58 Hgb 13.7 Hct 40.8 MCV 88.9 MCH 29.9 MCHC 33.6 RDW 15.5 Plt Count 142 L MPV 9.4 Neut % (Auto) 94.5 H Lymph % (Auto) 3.3 L [place] % (Auto) 2.1 Eos % (Auto) 0.0 Baso % (Auto) 0.1 Neut # (Auto) 8.3 H Lymph # (Auto) 0.3 L [place] # (Auto) 0.2 Eos # (Auto) 0.0 Baso # (Auto) 0.0 WBC Differential . Differential Comment Auto diff final PT INR APTT Sodium 143 Potassium 4.3 Chloride 107 Carbon Dioxide 30.2 Anion Gap 6 BUN 13 Creatinine 0.98 Estimated GFR 75 L Random Glucose 177 H Lactic Acid Calcium 8.4 L Total Bilirubin 0.9 AST 10 L ALT 19 Alkaline Phosphatase 76 Troponin I B-Natriuretic Peptide Total Protein 7.1 Albumin 2.9 L Lipase Urine Color [place] Urine Clarity Cloudy H Urine pH 8.0 Ur Specific [place] 1.013 Urine Protein 100 H Urine Glucose (UA) Negative Urine Ketones Negative Urine Occult Blood Small H Urine Nitrate Positive H Urine Bilirubin Negative Urine Urobilinogen Less than 2 Ur Leukocyte Esterase Large H Urine RBC 33 H Urine WBC Urine WBC Clumps Many H Calcium Oxalate Crystal Occasional H Urine Bacteria Many H Hyaline Casts 6 Urine Mucus Few H Micro UA Comment Cath-culture ind Ur Microscopic Review Not Reportable Urine Culture Comments Cath-cult indicated - Imaging Impressions Chest X-Ray 03/08/18 00:00 CONCLUSION: Cardiomegaly with stable basilar density since 2016, probably scarring/fibrosis and atelectasis. Elevated left hemidiaphragm. Abdomen/Pelvis CT 03/08/18 21:56 CONCLUSION: 1. Severe bilateral hydronephrosis and hydroureter of unclear etiology. 2. Suprapubic catheter with tip in the bladder. Small to moderate amount of urine and a small stone in the bladder. 3. Large left spigelian hernia. Small fat-containing umbilical hernia. 4. No obstruction or acute inflammatory changes of the gastrointestinal tract. 5. Scattered benign appearing hepatic cysts. 6. Right lower lobe masslike opacity stable for many years and felt to be benign. Mild bibasilar atelectasis. Assessment and Plan - Plan Impression Possible sepsis on admission, liklet due to UTI UTI, has SPC in place, has tonny hydro on CT Bilateral hydronephrosis SOB Hx ESBL+ infection in the past Recommendation Continue Zosyn Follow C/S Urology work-up in progress Monitor progress I will make further recommendations once work-up is completed I will follow along with you Thank you for this consultation Explained plan to the patient
--- NOTE | 2018-03-09 13:14 | NM ---
EXAM DATE: 03/09/2018 12:53 PM EDT AGE/SEX: 72 years / Male INDICATIONS: Bilateral hydronephrosis. Rule out obstruction. CLINICAL DATA: This is the patient's initial encounter. Patient reports that signs and symptoms have been present for 2 weeks and indicates a pain score of 0/10. MEDICAL/SURGICAL HISTORY: Chronic obstructive pulmonary disease. A-fib, paraplegia, suprapubic catheter. Colostomy. Cardiac ablation. COMPARISON: [facility] [place], CT ABDOMEN & PELVIS W/O CONTRAST, 03/08/2018. . TECHNIQUE: Following the intravenous administration of radiotracer, dynamic imaging of flow and excre tory phases was performed. DOSE: 21.2 mCi Tc99m DTPA IV MEDICATION: 40 mg Lasix IV at 13 minutes. min. FINDINGS: Flow: There is marked asymmetry of the renal flow. The left kidney gets considerably better flow. Differential Function: 16 % on Right. 84 % on Left. . Excretion: On the left side there is some cortical transit and excretion of radiotracer. There is zakiya e delay of accumulation within the collecting system centrally and only a small amount of activity ov erlying the kidney. There is Doppler flow to the right kidney and essentially normal cortical transit . There is no significant response to Lasix. CONCLUSION: 1. There clearly is bilaterally obstructed kidneys. The left is more function than the right but the re is also delayed cortical transit and some retained activity within the dilated collecting system o n the left. 2. Very little cortical transit on the right Electronically signed by: Roscoe Cheema MD 03/09/2018 1:13 PM EDT
--- NOTE | 2018-03-09 16:26 | ECG ---
Date Performed: 03/08/2018 Time Performed: 17:38:06 PTAGE: 72 years EKG: Sinus rhythm MODERATE INTRAVENTRICULAR CONDUCTION DELAY NONSPECIFIC T-WAVE ABNORMALITY BORDERLINE ECG PREVIOUS TRACING : 10/07/2015 @ 14.38 Since the previous tracing, no significant change noted DOCTOR: Vernon Torres Interpretating Date/Time 03/09/2018 16:25:33
[2018-03-09] MEDS: Budesonide-Formoterol 80/4.5 MCG 6.9 GM Inhaler INH SCH (18:00)
[2018-03-09] MEDS ORDERED: Morphine Sulfate Inj 2 MG/ML Vial IV.PUSH ONE (18:01)
[2018-03-09] MEDS: Umeclindinium 62.5 MCG/Vilanterol 25 MCG Inhaler INH SCH (18:22)
[2018-03-09] MEDS: Melatonin 5 MG Tablet PO SCH (21:27)
[2018-03-10] MEDS: Azithromycin Inj 500 MG in Sodium Chlor 0.9% Inj 250 ML IV.SIG SCH (04:30)
[2018-03-10] MEDS: Sod Chloride 0.9% Inj 1,000 ML IV.CONT SCH ×3 (05:47→17:28)
[2018-03-10] MEDS: Piperacil/Tazo 4.5 GM Premix 4.5 GM/100 ML BAG IV.SIG SCH ×3 (05:48→19:26)
[2018-03-10] MEDS: predniSONE 20 MG Tablet PO SCH (08:53)
[2018-03-10] MEDS: Senna/Docusate Sodium 8.6/50 MG Tablet PO SCH ×2 (08:53→20:53)
[2018-03-10] MEDS: Metoprolol Tartrate 100 MG Tablet PO SCH ×2 (08:53→20:53)
[2018-03-10] MEDS: Budesonide-Formoterol 80/4.5 MCG 6.9 GM Inhaler INH SCH (08:54)
--- NOTE | 2018-03-10 09:19 | P.PN ---
Subjective Interval history: Follow up for complicated UTI, obstructive uropathy. The patient reports diffuse pain today including his chronic spinal injury pain as well as some lower abdominal pain. Denies nausea/vomiting. Having brown stool output in colostomy. Denies fevers/chills. He is requesting air/wave bed due to his paraplegia. He is tolerating oral intake. Denies any other medical complaints at this time. Physical Exam Vital signs: Vital Signs 03/09/18 09:59 03/09/18 10:37 03/09/18 15:16 Temperature 97.7 F Pulse Rate 84 64 Respiratory Rate 17 16 Blood Pressure 123/67 Pulse Oximetry 96 95 03/09/18 20:00 03/09/18 20:39 03/10/18 00:00 Temperature 98.6 F 97.7 F Pulse Rate 76 76 83 Respiratory Rate 16 16 17 Blood Pressure 166/71 H 134/66 Pulse Oximetry 95 97 03/10/18 02:43 03/10/18 04:00 03/10/18 07:41 Temperature 97.7 F 98.0 F Pulse Rate 88 69 67 Respiratory Rate 16 17 20 Blood Pressure 139/74 139/69 Pulse Oximetry 97 98 Intake & Output 03/09/18 03/10/18 03/10/18 18:59 06:59 18:59 Intake Total 1680 / 1680 2170 / 2170 Output Total 3250 / 3250 850 / 850 Balance -1570 / -1570 1320 / 1320 Intake: IV 1200 / 1200 1450 / 1450 NS Inj 1,000 ML @ 100 mls/hr IV 1000 / 1000 1000 / 1000 .CONT .Q10H VENKAT Rx#:[id number] Azithromycin Inj 500 MG In NS 250 / 250 Inj 250 ML @ 250 mls/hr IV.SIG Q24H VENKAT Rx#:[id number] Zosyn 4.5 GM Premix 4.5 gm In 200 / 200 200 / 200 100 ml @ 200 mls/hr IV.SIG Q6H VENKAT Rx#:[id number] Oral 480 / 480 720 / 720 Output: Urine Amount (Catheter) 3250 / 3250 850 / 850 Suprapubic 3250 / 3250 850 / 850 Narrative: GENERAL: Well-nourished, well-developed pleasant elderly male patient in [place]. SKIN: Warm and dry. No rash. HEENT: Normocephalic. Atraumatic. Pupils equal and round. Mucous membranes pink and moist. CARDIOVASCULAR: Regular rate and rhythm. No murmur appreciated. RESPIRATORY: No accessory muscle use. Clear to auscultation. Breath sounds equal bilaterally. GASTROINTESTINAL: Abdomen soft, non-tender, nondistended. Normoactive bowel sounds x4. Left lower quadrant colostomy with parastomal hernia. GENITOURINARY: Suprapubic catheter with minimal surrounding dried blood, no erythema. MUSCULOSKELETAL: No obvious deformities. Extremities without clubbing, cyanosis , or edema. NEUROLOGICAL: Awake and alert. No obvious cranial nerve deficits. Lower extremity paraplegia. Normal speech. PSYCHIATRIC: Appropriate mood and affect; insight and judgment normal. - Urinary Catheter Management Suprapubic Cath placed during this visit: no Results - Labs CBC & Chem 7: 03/09/18 07:06 03/09/18 07:06 Microbiology 03/08/18 20:10 Catheterized Urine Urine Culture - Final 50-100,000 cfu/mL mixed rafael (probable contaminants ) 03/08/18 20:05 Blood - Peripheral Aerobic Blood Culture - Preliminary No growth in 1 day 03/08/18 20:05 Blood - Peripheral Anaerobic Blood Culture - Preliminary No growth in 1 day 03/08/18 20:00 Blood - Peripheral Aerobic Blood Culture - Preliminary No growth in 1 day 03/08/18 20:00 Blood - Peripheral Anaerobic Blood Culture - Preliminary No growth in 1 day - Imaging Impressions Renal Scan w/Medication NM 03/09/18 00:00 CONCLUSION: 1. There clearly is bilaterally obstructed kidneys. The left is more function than the right but there is also delayed cortical transit and some retained activity within the dilated collecting system on the left. 2. Very little cortical transit on the right - Procedures 03/09/18uprapubic catheter exchange at bedside by urology Dr. Reid Assessment and Plan - Plan 72-year-old male with a history of paraplegia, chronic suprapubic catheter, diverting colostomy, COPD who presents with a 3-week history of progressively worsening fevers, shortness of breath, and suprapubic pain. Sepsis, complicated UTI with suprapubic catheter, : Patient is paraplegic with suprapubic catheter in place. Tachycardic/Tachypneic on admission. -UA reviewed, positive nitrates/leukocytes/WBCs/bacteria -Urine culture pending -Blood cultures with NGTD -Give IVF hydration -Urology consulted, appreciate recommendations -03/09atus post suprapubic catheter exchange at bedside by urology Dr. Reid -Infectious disease consult, appreciate recommendations -Continue on antibiotics with IV Zosyn -Monitor for improvement, Monitor BMP Obstructive Uropathy with severe bilateral hydronephrosis: acute. S/p suprapubic catheter exchange at bedside, reportedly blocked with sediment. -Abd/Pelvis CT showed Severe bilateral hydronephrosis and hydroureter; Suprapubic catheter with tip in the bladder; Small to moderate amount of urine and a small stone in the bladder -Renal Scan with NM showed: There clearly is bilaterally obstructed kidneys. The left is more function than the right but there is also delayed cortical transit and some retained activity within the dilated collecting system on the left. Very little cortical transit on the right -Urology consulted as above, appreciate recommendations Mild COPD Exacerbation: patient endorsing SOB on arrival -Will give prednisone 40mg daily x5days -Duonebs q6h and albuterol inhaler prn -Incentive spirometer -Improving Paraplegia/Chronic Pain: chronic -continue patient's home meds including Cymbalta, Lyrica, and Tramadol prn -specialty bed ordered, discussed with RN DVT Prophylaxis: Heparin sq Discharge Planning: Not yet ready for discharge. Await urology and infectious disease follow up and recommendations.
--- NOTE | 2018-03-10 09:43 | P.PNID ---
Subjective Remarks: Patient is a 72-year-old male, presented to the hospital complaining of 3-week history of worsening shortness of breath. He denies any cough or chest congestion or any chest pain. He also noted some on and off pain in his suprapubic region, and he has a suprapubic catheter. It gets changed once a month, and it was last changed close to about a month ago. A nurse comes to his home and changes the catheter. He has had some low-grade fevers at home. He has not had any nausea or vomiting. He thinks the last time he had a urinary tract infection was about a year ago. Since admission he has not had any fever. His WBC was initially 11,000, and is down to normal. Urinalysis is showing evidence of UTI. CT of the abdomen and pelvis is showing evidence of bilateral hydronephrosis. Urology has seen the patient, and has ordered a renal scan. He has had previous history of recurrent UTI, and the last UTI recorded here is from 2015, and at that time he had a Proteus ESBL positive organism. Patient currently is on IV Zosyn. Overall his shortness of breath has improved. His chest x-ray on admission showed cardiomegaly with some stable bibasilar densities. SPC was changed this morning. Infectious disease consultation has been requested to assist with evaluation and treatment of UTI, and patient having prior history of ESBL positive organisms. Notes reviewed Temps ok C/O cauda equina pain - just got back on his regular pain medicine regimen Renal scan report noted - findings of obstruction UC mixed rafael BC negative WBC normal Creatinine better Antibiotics: Zosyn Zithromax Lines: PIV Past Medical History: Afib COPD (chronic obstructive pulmonary disease) Colostomy in place ESBL (extended spectrum beta-lactamase) producing bacteria infection Osteomyelitis Paraplegia Recurrent UTI Suprapubic catheter H/O cardiac radiofrequency ablation Allergies/Adverse Reactions: Allergies *MDRO Multi-Drug Resistant Organism Adverse Reaction (Severe, Uncoded 03/08/18 18:27) Hives MRSA (decubitis) - 04/2014; (buttock wound) - 07/2014; (urine) - 05/2015 ESBL +Proteus Mirabilis (urine-09/2015) Objective Vital Signs 03/09/18 09:59 03/09/18 10:37 03/09/18 15:16 Temperature 97.7 F Pulse Rate 84 64 Respiratory Rate 17 16 Blood Pressure 123/67 Pulse Oximetry 96 95 03/09/18 20:00 03/09/18 20:39 03/10/18 00:00 Temperature 98.6 F 97.7 F Pulse Rate 76 76 83 Respiratory Rate 16 16 17 Blood Pressure 166/71 H 134/66 Pulse Oximetry 95 97 03/10/18 02:43 03/10/18 04:00 03/10/18 07:41 Temperature 97.7 F 98.0 F Pulse Rate 88 69 67 Respiratory Rate 16 17 20 Blood Pressure 139/74 139/69 Pulse Oximetry 97 98 Intake & Output 03/09/18 03/10/18 03/10/18 18:59 06:59 18:59 Intake Total 1680 / 1680 2170 / 2170 Output Total 3250 / 3250 850 / 850 Balance -1570 / -1570 1320 / 1320 Intake: IV 1200 / 1200 1450 / 1450 NS Inj 1,000 ML @ 100 mls/hr IV 1000 / 1000 1000 / 1000 .CONT .Q10H VENKAT Rx#:[id number] Azithromycin Inj 500 MG In NS 250 / 250 Inj 250 ML @ 250 mls/hr IV.SIG Q24H VENKAT Rx#:[id number] Zosyn 4.5 GM Premix 4.5 gm In 200 / 200 200 / 200 100 ml @ 200 mls/hr IV.SIG Q6H VENKAT Rx#:[id number] Oral 480 / 480 720 / 720 Output: Urine Amount (Catheter) 3250 / 3250 850 / 850 Suprapubic 3250 / 3250 850 / 850 03/08/18 20:10 Catheterized Urine Urine Culture - Final 50-100,000 cfu/mL mixed rafael (probable contaminants ) 03/08/18 20:05 Blood - Peripheral Aerobic Blood Culture - Preliminary No growth in 1 day 03/08/18 20:05 Blood - Peripheral Anaerobic Blood Culture - Preliminary No growth in 1 day 03/08/18 20:00 Blood - Peripheral Aerobic Blood Culture - Preliminary No growth in 1 day 03/08/18 20:00 Blood - Peripheral Anaerobic Blood Culture - Preliminary No growth in 1 day 03/08/18 20:10 Nasal Wash Influenza Types A,B Antigen - Final Negative for FLU A and B antigen Infection due to influenza A or B cannot be ruled out since the antigen present in the sample may be below the detection limit of the test. Lab - Hematology Results 03/08/18 03/09/18 20:10 07:06 WBC 11.5 H 8.8 RBC 4.72 4.58 Hgb 13.6 13.7 Hct 41.6 40.8 MCV 88.2 88.9 MCH 28.8 29.9 MCHC 32.7 33.6 RDW 15.6 15.5 Plt Count 163 142 L MPV 9.7 9.4 Neut % (Auto) 85.3 H 94.5 H Lymph % (Auto) 4.1 L 3.3 L [place] % (Auto) 9.7 H 2.1 Eos % (Auto) 0.5 0.0 Baso % (Auto) 0.4 0.1 Neut # (Auto) 9.8 H 8.3 H Lymph # (Auto) 0.5 L 0.3 L [place] # (Auto) 1.1 H 0.2 Eos # (Auto) 0.1 0.0 Baso # (Auto) 0.0 0.0 WBC Differential . . Differential Comment Auto diff final Auto diff final Lab - Chemistry Results 03/08/18 03/08/18 03/08/18 20:05 20:10 20:10 Sodium 141 Potassium 4.0 Chloride 104 Carbon Dioxide 30.9 Anion Gap 6 BUN 13 Creatinine 1.11 Estimated GFR 65 L Random Glucose 114 H Lactic Acid 1.3 Calcium 8.5 Total Bilirubin 0.6 AST 17 ALT 19 Alkaline Phosphatase 82 Troponin I Less than 0.02 L B-Natriuretic Peptide 17 Total Protein 7.1 Albumin 3.1 L Lipase 71 L 03/09/18 07:06 Sodium 143 Potassium 4.3 Chloride 107 Carbon Dioxide 30.2 Anion Gap 6 BUN 13 Creatinine 0.98 Estimated GFR 75 L Random Glucose 177 H Lactic Acid Calcium 8.4 L Total Bilirubin 0.9 AST 10 L ALT 19 Alkaline Phosphatase 76 Troponin I B-Natriuretic Peptide Total Protein 7.1 Albumin 2.9 L Lipase Imaging: ITS Impressions Chest X-Ray 03/08/18 00:00 CONCLUSION: Cardiomegaly with stable basilar density since 2016, probably scarring/fibrosis and atelectasis. Elevated left hemidiaphragm. Abdomen/Pelvis CT 03/08/18 21:56 CONCLUSION: 1. Severe bilateral hydronephrosis and hydroureter of unclear etiology. 2. Suprapubic catheter with tip in the bladder. Small to moderate amount of urine and a small stone in the bladder. 3. Large left spigelian hernia. Small fat-containing umbilical hernia. 4. No obstruction or acute inflammatory changes of the gastrointestinal tract. 5. Scattered benign appearing hepatic cysts. 6. Right lower lobe masslike opacity stable for many years and felt to be benign. Mild bibasilar atelectasis. Renal Scan w/Medication NM 03/09/18 00:00 CONCLUSION: 1. There clearly is bilaterally obstructed kidneys. The left is more function than the right but there is also delayed cortical transit and some retained activity within the dilated collecting system on the left. 2. Very little cortical transit on the right Physical Exam: GENERAL: awake and alert, not in respiratory distress. SKIN: Cool and dry. No generalized rash. HEAD: Atraumatic. Normocephalic. No temporal wasting, or tenderness. EYES: [place] conjunctiva. No petechia or hemorrhage. No scleral icterus. No injection or drainage. EARS, NOSE AND THROAT: Nose without bleeding or purulent nasal discharge. No sinus tenderness. Mucous membranes pink and moist. No oral lesions noted. NECK: Trachea midline. Supple and not tender, no meningeal signs CARDIOVASCULAR: Regular rate and rhythm. No murmurs, rubs or gallops heard RESPIRATORY: Clear to auscultation. Breath sounds equal bilaterally. No rales , wheezing or rhonchi ABDOMEN: Soft, obese, non-tender, nondistended. Bowel sounds present and normoactive. No guarding. No rebound. Has colostomy on left side and has peristomal hernia. SPC site looks ok. EXTREMITIES: No clubbing, cyanosis, or edema. No calf tenderness. Well perfused and warm. NEUROLOGICAL: Awake and alert. Cranial nerves grossly intact. No movement in his RLE, has some in LLE. Good motor strength in BUE PSYCHIATRIC: Normal affect, calm and cooperative. LINE: No evidence of infection Assessment and Plan - Plan Impression Possible sepsis on admission, likely due to UTI UTI, has SPC in place, has tonny hydro on CT - renal scan showing evidence of obstruction Bilateral hydronephrosis SOB Hx ESBL+ infection in the past Recommendation Continue Zosyn Stop Zithromax Follow C/S Determine Abx depending on results of culture and workup/intervention Repeat UA and C/S Await urology: regarding renal scan report Monitor progress Explained plan to the patient
[2018-03-10 12:45] LABS: Bacteria,Urine Many /hpf; Bilirubin,Urine Negative (Negative); Clarity,Urine Turbid (Clear); Color,Urine Yellow (Yellw/Straw); Glucose,Urine (UA) Negative (Negative); Leukocyte Esterase,Urine Moderate (Negative); Mucus,Urine Few /lpf (Occasional); Nitrite,Urine Positive (Negative); Specific Gravity,Urine 1.027 (1.002-1.035)
[2018-03-10] MEDS: Duloxetine 60 MG DR Capsule PO SCH (13:00)
[2018-03-10] MEDS: Umeclindinium 62.5 MCG/Vilanterol 25 MCG Inhaler INH SCH (18:35)
[2018-03-10] MEDS: Heparin - SQ 10,000 UNITS/ML Vial SQ SCH (20:53)
[2018-03-10] MEDS: Melatonin 5 MG Tablet PO SCH (20:53)
[2018-03-11] MEDS: Piperacil/Tazo 4.5 GM Premix 4.5 GM/100 ML BAG IV.SIG SCH ×5 (00:25→23:38)
[2018-03-11] MEDS: Sod Chloride 0.9% Inj 1,000 ML IV.CONT SCH ×2 (00:25→13:04)
[2018-03-11] MEDS ORDERED: Azithromycin 250 MG Tablet PO SCH (09:00)
[2018-03-11] MEDS: Metoprolol Tartrate 100 MG Tablet PO SCH ×2 (10:35→21:20)
[2018-03-11] MEDS: predniSONE 20 MG Tablet PO SCH (10:35)
[2018-03-11] MEDS: Senna/Docusate Sodium 8.6/50 MG Tablet PO SCH ×2 (10:35→21:21)
[2018-03-11] MEDS: Heparin - SQ 10,000 UNITS/ML Vial SQ SCH ×2 (10:35→21:21)
[2018-03-11] MEDS: Duloxetine 60 MG DR Capsule PO SCH (10:35)
[2018-03-11] MEDS: Budesonide-Formoterol 80/4.5 MCG 6.9 GM Inhaler INH SCH (10:36)
--- NOTE | 2018-03-11 15:57 | P.PN ---
Subjective Interval history: Follow-up for complicated UTI, hydronephrosis, suprapubic catheter. Patient seen and examined. States that he feels much better, no pain, no fever. Tolerating diet well, no nausea, no vomiting, no diarrhea. Occasional shortness of breath with cough, postnasal drip especially at night. Occasional wheezing. Physical Exam Vital signs: Vital Signs 03/10/18 17:40 03/10/18 19:05 03/10/18 20:00 Temperature 98.6 F Pulse Rate 72 90 Respiratory Rate 20 16 17 Blood Pressure 171/79 H Pulse Oximetry 95 03/10/18 22:02 03/10/18 22:03 03/11/18 00:00 Temperature 98.4 F Pulse Rate 90 76 Respiratory Rate 16 19 Blood Pressure 182/87 H Pulse Oximetry 95 96 03/11/18 03:13 03/11/18 04:00 03/11/18 06:00 Temperature 98.1 F 97.7 F Pulse Rate 78 64 62 Respiratory Rate 16 18 17 Blood Pressure 128/69 134/67 Pulse Oximetry 96 95 03/11/18 09:49 03/11/18 12:00 03/11/18 15:18 Temperature 97.3 F L Pulse Rate 63 60 71 Respiratory Rate 16 20 16 Blood Pressure 137/78 Pulse Oximetry 96 95 Intake & Output 03/10/18 03/11/18 03/11/18 18:59 06:59 18:59 Intake Total 1100 / 1100 2014 625 / 625 Output Total 800 / 800 Balance 300 / 300 2014 625 / 625 Weight 118.4 kg Intake: IV 1100 / 1100 1775 / 1775 625 / 625 NS Inj 1,000 ML @ 100 mls/hr IV 1000 / 1000 1575 / 1575 425 / 425 .CONT .Q10H VENKAT Rx#:[id number] Zosyn 4.5 GM Premix 4.5 gm In 100 / 100 200 / 200 200 / 200 100 ml @ 200 mls/hr IV.SIG Q6H VENKAT Rx#:[id number] Oral 240 / 240 Output: Urine Amount (Catheter) 800 / 800 Suprapubic 800 / 800 Narrative: GENERAL: Well-nourished, well-developed pleasant elderly male patient in [facility]. SKIN: Warm and dry. No rash. HEENT: Normocephalic. Atraumatic. Pupils equal and round. Mucous membranes pink and moist. CARDIOVASCULAR: Regular rate and rhythm. No murmur appreciated. RESPIRATORY: No accessory muscle use. Clear to auscultation. Breath sounds equal bilaterally. GASTROINTESTINAL: Abdomen soft, non-tender, nondistended. Normoactive bowel sounds x4. Left lower quadrant colostomy with parastomal hernia. GENITOURINARY: Suprapubic catheter with minimal surrounding dried blood, no erythema. MUSCULOSKELETAL: No obvious deformities. Extremities without clubbing, cyanosis , or edema. Bilateral lower extremity atrophy. NEUROLOGICAL: Awake and alert. No obvious cranial nerve deficits. Lower extremity paraplegia. Normal speech. PSYCHIATRIC: Appropriate mood and affect; insight and judgment normal. - Urinary Catheter Management Suprapubic Cath placed during this visit: yes Reason for continuing: Chronic Urinary Retention Insertion date: 03/09/18 Results - Labs CBC & Chem 7: 03/09/18 07:06 03/09/18 07:06 Laboratory Results - last 24 hr 03/10/18 11:09 Urine Color Yellow Urine Clarity Turbid H Urine pH 5.0 Ur Specific [place] 1.027 Urine Protein 100 H Urine Glucose (UA) Negative Urine Ketones Negative Urine Occult Blood Moderate H Urine Nitrate Positive H Urine Bilirubin Negative Urine Urobilinogen Less than 2 Ur Leukocyte Esterase Moderate H Urine RBC 15 H Urine WBC Urine WBC Clumps Few H Urine Bacteria Many H Urine Mucus Few H Micro UA Comment Cath-culture ind Urine Culture Comments Cath-cult indicated Microbiology 03/10/18 11:09 Catheterized Urine Urine Culture - Preliminary S. aureus MRSA 03/08/18 20:05 Blood - Peripheral Aerobic Blood Culture - Preliminary No growth in 3 days 03/08/18 20:05 Blood - Peripheral Anaerobic Blood Culture - Preliminary No growth in 3 days 03/08/18 20:00 Blood - Peripheral Aerobic Blood Culture - Preliminary No growth in 3 days 03/08/18 20:00 Blood - Peripheral Anaerobic Blood Culture - Preliminary No growth in 3 days - Procedures 03/09/18uprapubic catheter exchange at bedside by urology Dr. Reid Assessment and Plan - Plan 72-year-old male with a history of paraplegia, chronic suprapubic catheter, diverting colostomy, COPD who presents with a 3-week history of progressively worsening fevers, shortness of breath, and suprapubic pain. Sepsis, complicated UTI with suprapubic catheter, : Patient is paraplegic with suprapubic catheter in place. Tachycardic/Tachypneic on admission. -UA reviewed, positive nitrates/leukocytes/WBCs/bacteria. Urine culture- mixed rafael -Blood cultures with NGTD -Was give IVF hydration -Urology consulted, appreciate recommendations -03/09atus post suprapubic catheter exchange at bedside by urology Dr. Reid -Infectious disease consult, appreciate recommendations -Continue on antibiotics with IV Zosyn -Repeat a UA, 03/10/2018 + MRSA -We will wait for further recommendations from ID. Obstructive Uropathy with severe bilateral hydronephrosis: acute. S/p suprapubic catheter exchange at bedside, reportedly blocked with sediment. -Abd/Pelvis CT showed Severe bilateral hydronephrosis and hydroureter; Suprapubic catheter with tip in the bladder; Small to moderate amount of urine and a small stone in the bladder -Renal Scan with NM showed: There clearly is bilaterally obstructed kidneys. The left is more function than the right but there is also delayed cortical transit and some retained activity within the dilated collecting system on the left. Very little cortical transit on the right -Urology consulted as above, appreciate recommendations -Patient can continue to follow-up as outpatient with urology from the [place] Mild COPD Exacerbation: patient endorsing SOB on arrival Complains of postnasal drip -Continue prednisone 40mg daily x5days -Duonebs q6h and albuterol inhaler prn -Incentive spirometer -Add Flonase 2 puffs twice daily Paraplegia/Chronic Pain: chronic -continue patient's home meds including Cymbalta, Lyrica, and Tramadol prn -specialty bed ordered DVT Prophylaxis: Heparin sq We will wait for ID recommendations Possible discharge on Tuesday Code Status: Full code Discussed Condition With: RN, pt, CM Discharge Planning: Poss dc Tuesday, waiting for ID clearance
[2018-03-11] MEDS: Umeclindinium 62.5 MCG/Vilanterol 25 MCG Inhaler INH SCH (17:42)
[2018-03-11] MEDS: Melatonin 5 MG Tablet PO SCH (21:20)
[2018-03-12] MEDS: Piperacil/Tazo 4.5 GM Premix 4.5 GM/100 ML BAG IV.SIG SCH ×3 (05:43→17:02)
[2018-03-12] MEDS: Duloxetine 60 MG DR Capsule PO SCH (10:19)
[2018-03-12] MEDS: predniSONE 20 MG Tablet PO SCH (10:20)
[2018-03-12] MEDS: Budesonide-Formoterol 80/4.5 MCG 6.9 GM Inhaler INH SCH (10:20)
[2018-03-12] MEDS: Senna/Docusate Sodium 8.6/50 MG Tablet PO SCH ×2 (10:20→20:47)
[2018-03-12] MEDS: Heparin - SQ 10,000 UNITS/ML Vial SQ SCH ×2 (10:20→20:50)
[2018-03-12] MEDS: Metoprolol Tartrate 100 MG Tablet PO SCH ×2 (10:20→20:47)
[2018-03-12] MEDS ORDERED: ALPRAZolam 0.25 MG Tablet PO PRN (12:56)
--- NOTE | 2018-03-12 13:06 | P.PN ---
Subjective Interval history: Follow-up for complicated UTI, hydronephrosis, suprapubic catheter. Patient seen and examined. c/o significant pain to feet, burn sensation as well as low back pain. Has hx of chronic pain and at one point was on large doses of narcotics that he was weaned off. Ultram is the only med he uses but he has noted inc. pain since admit. Discussed using Percocet while in hospital and he is agreeable. States he is very much aware of potential for dependence and only wants while inpatient. C/O anxiety and sob at night, occ. wheezing. No CP. No urinary symptoms, no fever. Physical Exam Vital signs: Vital Signs 03/11/18 15:18 03/11/18 16:00 03/11/18 20:00 Temperature 97.1 F L Pulse Rate 71 68 Respiratory Rate 16 20 16 Blood Pressure 184/98 H Pulse Oximetry 95 03/11/18 20:17 03/11/18 21:24 03/12/18 00:00 Temperature 97.9 F 97.8 F Pulse Rate 71 71 75 Respiratory Rate 20 18 18 Blood Pressure 153/73 H 143/88 H Pulse Oximetry 96 94 L 93 L 03/12/18 04:00 03/12/18 04:20 03/12/18 08:00 Temperature 97.5 F L 97.9 F Pulse Rate 64 90 57 L Respiratory Rate 20 18 20 Blood Pressure 164/94 H 173/91 H Pulse Oximetry 96 97 03/12/18 10:15 Temperature Pulse Rate 68 Respiratory Rate 16 Blood Pressure Pulse Oximetry 96 Intake & Output 03/11/18 03/12/18 03/12/18 19:59 06:59 18:59 Intake Total Output Total Balance Weight Intake: IV NS Inj 1,000 ML @ 100 mls/hr IV .CONT .Q10H VENKAT Rx#:[id number] Zosyn 4.5 GM Premix 4.5 gm In 100 ml @ 200 mls/hr IV.SIG Q6H VENKAT Rx#:[id number] Output: Urine Stool Amount (Stoma) Pre-Hospital: Left Upper Abdomen Other: # Bowel Movements Narrative: GENERAL: Well-nourished, well-developed pleasant elderly male patient in [place]. SKIN: Warm and dry. No rash. HEENT: Normocephalic. Atraumatic. Pupils equal and round. Mucous membranes pink and moist. CARDIOVASCULAR: Regular rate and rhythm. No murmur appreciated. RESPIRATORY: minimal exp. wheezing upper lobes GASTROINTESTINAL: Abdomen soft, non-tender, nondistended. Normoactive bowel sounds x4. Left lower quadrant colostomy with parastomal hernia. GENITOURINARY: Suprapubic catheter with minimal surrounding dried blood, no erythema. MUSCULOSKELETAL: No obvious deformities. Extremities without clubbing, cyanosis , or edema. Bilateral lower extremity atrophy. NEUROLOGICAL: Awake and alert. No obvious cranial nerve deficits. Lower extremity paraplegia. Normal speech. PSYCHIATRIC: Appropriate mood and affect; insight and judgment normal. - Urinary Catheter Management Suprapubic Cath placed during this visit: yes Reason for continuing: Chronic Urinary Retention Insertion date: 03/09/18 Results - Labs CBC & Chem 7: 03/09/18 07:06 03/09/18 07:06 Microbiology 03/08/18 20:05 Blood - Peripheral Aerobic Blood Culture - Preliminary No growth in 4 days 03/08/18 20:05 Blood - Peripheral Anaerobic Blood Culture - Preliminary No growth in 4 days 03/08/18 20:00 Blood - Peripheral Aerobic Blood Culture - Preliminary No growth in 4 days 03/08/18 20:00 Blood - Peripheral Anaerobic Blood Culture - Preliminary No growth in 4 days 03/10/18 11:09 Catheterized Urine Urine Culture - Final S. aureus MRSA - Procedures 03/09/18uprapubic catheter exchange at bedside by urology Dr. Reid Assessment and Plan - Plan 72-year-old male with a history of paraplegia, chronic suprapubic catheter, diverting colostomy, COPD who presents with a 3-week history of progressively worsening fevers, shortness of breath, and suprapubic pain. Sepsis, complicated UTI with suprapubic catheter, : Patient is paraplegic with suprapubic catheter in place. Tachycardic/Tachypneic on admission. -UA reviewed, positive nitrates/leukocytes/WBCs/bacteria. Urine culture- mixed rafael -Blood cultures with NGTD -Was give IVF hydration -Urology consulted, appreciate recommendations -03/09atus post suprapubic catheter exchange at bedside by urology Dr. Reid -Infectious disease consult, appreciate recommendations -Continue on antibiotics with IV Zosyn -Repeat a UA, 03/10/2018 + MRSA. Patient is clinically improved, possible colonization. -We will wait for further recommendations from ID. Obstructive Uropathy with severe bilateral hydronephrosis: acute. S/p suprapubic catheter exchange at bedside, reportedly blocked with sediment. -Abd/Pelvis CT showed Severe bilateral hydronephrosis and hydroureter; Suprapubic catheter with tip in the bladder; Small to moderate amount of urine and a small stone in the bladder -Renal Scan with NM showed: There clearly is bilaterally obstructed kidneys. The left is more function than the right but there is also delayed cortical transit and some retained activity within the dilated collecting system on the left. Very little cortical transit on the right -Urology consulted as above, appreciate recommendations -Patient can continue to follow-up as outpatient with urology from the [place] Mild COPD Exacerbation: patient endorsing SOB on arrival Complains of postnasal drip -Continue prednisone 40mg daily x5days -Duonebs q6h and albuterol inhaler prn -Incentive spirometer -Flonase 2 puffs twice daily Paraplegia/Chronic Pain: chronic -continue patient's home meds including Cymbalta, Lyrica, and Tramadol prn -specialty bed ordered -Increasing low back pain, will add Percocet 5/325 1 tab p.o. every 4 as needed Anxiety-worse at night, exacerbates shortness of breath. Xanax 0.25 mg p.o. every 8 as needed Hypertension, blood pressure elevated at times Continue with metoprolol 100 mg p.o. twice daily Add Vasotec as needed DVT Prophylaxis: Heparin sq We will wait for ID recommendations Possible discharge on Tuesday CM consult for C Code Status: Full code Discussed Condition With: RN, pt. Discharge Planning: [facility] Tuesday, waiting for ID clearance
--- NOTE | 2018-03-12 14:16 | P.DCO ---
- Diagnosis (1) UTI (urinary tract infection) Status: Acute (2) Hydronephrosis Status: Acute (3) Sepsis Status: Acute - Home Health Nursing Order: Medical education, Nursing assessment with vital signs, IV medication administration (possible IV abx, pending ID recommendations) - Case Management Consult Yes - Certification I have seen patient Frank Walter on 03/12/18. My clinical findings support the need for the requested home health care services because: pt. paraplegic. Limited ability to care for self I certify that my clinical findings support that this patient is homebound because: Non-ambulatory: confined to bed or chair
[2018-03-12] MEDS: Umeclindinium 62.5 MCG/Vilanterol 25 MCG Inhaler INH SCH (17:02)
[2018-03-12] MEDS: Melatonin 5 MG Tablet PO SCH (22:51)
[2018-03-13] MEDS: Piperacil/Tazo 4.5 GM Premix 4.5 GM/100 ML BAG IV.SIG SCH ×3 (00:01→12:21)
[2018-03-13] MEDS: Metoprolol Tartrate 100 MG Tablet PO SCH (09:44)
[2018-03-13] MEDS: predniSONE 20 MG Tablet PO SCH (09:44)
[2018-03-13] MEDS: Senna/Docusate Sodium 8.6/50 MG Tablet PO SCH (09:45)
[2018-03-13] MEDS: Heparin - SQ 10,000 UNITS/ML Vial SQ SCH (09:45)
[2018-03-13] MEDS: Duloxetine 60 MG DR Capsule PO SCH (09:45)
[2018-03-13] MEDS: Budesonide-Formoterol 80/4.5 MCG 6.9 GM Inhaler INH SCH (09:46)
--- NOTE | 2018-03-13 12:56 | P.PN ---
Subjective Interval history: Follow-up for complicated UTI, hydronephrosis, suprapubic catheter. Patient seen and examined. Became confused last night, removed gown. Patient lethargic , awakes to voice. Slow to respond, knows he is in the hospital, year, month, rationale for hospitalization. Indicates that he had not slept in a long time and the Xanax did help. Does not recall being confused. Was given Percocet as well. Remains with occasional cough and shortness of breath. No chest pain. Physical Exam Vital signs: Vital Signs 03/12/18 15:44 03/12/18 16:00 03/12/18 20:00 Temperature 99.2 F 98.5 F Pulse Rate 73 65 71 Respiratory Rate 16 20 22 Blood Pressure 186/100 H 178/78 H Pulse Oximetry 94 L 93 L 03/12/18 21:03 03/13/18 00:00 03/13/18 03:25 Temperature 97.8 F Pulse Rate 64 71 76 Respiratory Rate 16 22 16 Blood Pressure 172/78 H Pulse Oximetry 95 94 L 03/13/18 04:00 03/13/18 05:50 03/13/18 06:05 Temperature 97.5 F L Pulse Rate 66 Respiratory Rate 20 Blood Pressure 179/84 H 169/80 H 159/74 H Pulse Oximetry 96 03/13/18 08:00 03/13/18 11:32 03/13/18 12:00 Temperature 97.3 F L 97.7 F Pulse Rate 60 55 L Respiratory Rate 18 18 Blood Pressure 163/78 H 163/76 H Pulse Oximetry 97 97 98 Intake & Output 03/12/18 03/13/18 03/13/18 18:59 06:59 18:59 Intake Total 560 / 560 200 / 200 Output Total 300 / 300 125 / 125 Balance 260 / 260 75 / 75 Weight 113.6 kg Intake: IV 200 / 200 200 / 200 Zosyn 4.5 GM Premix 4.5 gm In 200 / 200 200 / 200 100 ml @ 200 mls/hr IV.SIG Q6H VENKAT Rx#:[id number] Oral 360 / 360 Output: Urine 300 / 300 125 / 125 Stool 0 / 0 Other: # Bowel Movements 1 Narrative: GENERAL: Well-nourished, well-developed pleasant elderly male patient in NAD. SKIN: Warm and dry. No rash. HEENT: Normocephalic. Atraumatic. Pupils dilated, round. Mucous membranes pink and moist. CARDIOVASCULAR: Regular rate and rhythm. No murmur appreciated. RESPIRATORY: minimal exp. wheezing upper lobes GASTROINTESTINAL: Abdomen soft, non-tender, nondistended. Normoactive bowel sounds x4. Left lower quadrant colostomy with parastomal hernia. GENITOURINARY: Suprapubic catheter with minimal surrounding dried blood, no erythema. MUSCULOSKELETAL: No obvious deformities. Extremities without clubbing, cyanosis , or edema. Bilateral lower extremity atrophy. NEUROLOGICAL: lethargic, awakes to voice PSYCHIATRIC: Appropriate mood and affect; insight and judgment normal. - Urinary Catheter Management Suprapubic Cath placed during this visit: yes Reason for continuing: Chronic Urinary Retention Insertion date: 03/09/18 Results - Labs CBC & Chem 7: 03/09/18 07:06 03/09/18 07:06 Microbiology 03/08/18 20:05 Blood - Peripheral Aerobic Blood Culture - Final No growth in 5 days 03/08/18 20:05 Blood - Peripheral Anaerobic Blood Culture - Final No growth in 5 days 03/08/18 20:00 Blood - Peripheral Aerobic Blood Culture - Final No growth in 5 days 03/08/18 20:00 Blood - Peripheral Anaerobic Blood Culture - Final No growth in 5 days 03/10/18 11:09 Catheterized Urine Urine Culture - Final S. aureus MRSA - Procedures 03/09/18uprapubic catheter exchange at bedside by urology Dr. Reid Assessment and Plan - Plan 72-year-old male with a history of paraplegia, chronic suprapubic catheter, diverting colostomy, COPD who presents with a 3-week history of progressively worsening fevers, shortness of breath, and suprapubic pain. Sepsis, complicated UTI with suprapubic catheter, : Patient is paraplegic with suprapubic catheter in place. Tachycardic/Tachypneic on admission. -UA reviewed, positive nitrates/leukocytes/WBCs/bacteria. Urine culture- mixed rafael -Blood cultures with NGTD -Was give IVF hydration -Urology consulted, appreciate recommendations -03/09atus post suprapubic catheter exchange at bedside by urology Dr. Reid -Infectious disease consult, appreciate recommendations -Continue on antibiotics with IV Zosyn -Repeat a UA, 03/10/2018 + MRSA, sens. noted Patient is clinically improved , possible colonization. -We will wait for further recommendations from ID. Obstructive Uropathy with severe bilateral hydronephrosis: acute. S/p suprapubic catheter exchange at bedside, reportedly blocked with sediment. -Abd/Pelvis CT showed Severe bilateral hydronephrosis and hydroureter; Suprapubic catheter with tip in the bladder; Small to moderate amount of urine and a small stone in the bladder -Renal Scan with NM showed: There clearly is bilaterally obstructed kidneys. The left is more function than the right but there is also delayed cortical transit and some retained activity within the dilated collecting system on the left. Very little cortical transit on the right -Urology consulted as above, appreciate recommendations -Patient can continue to follow-up as outpatient with Dr. Reid. Mild COPD Exacerbation: patient endorsing SOB on arrival Complains of postnasal drip -Continue prednisone 40mg daily x5days -Duonebs q6h and albuterol inhaler prn -Incentive spirometer -Flonase 2 puffs twice daily Paraplegia/Chronic Pain: chronic -continue patient's home meds including Cymbalta, Lyrica, and Tramadol prn -specialty bed ordered -Increasing low back pain, added Percocet 5/325 1 tab p.o. every 4 as needed -will stop Percocet, inc. confusion at night Anxiety-worse at night, exacerbates shortness of breath. Xanax 0.25 mg p.o. every 8 as needed Hypertension, blood pressure elevated at times Continue with metoprolol 100 mg p.o. twice daily Add Vasotec as needed DVT Prophylaxis: Heparin sq PT eval Pt. now awake, no longer lethargic, states he slept well. no fever Discharge patient today with home and home health care Cleared by infectious disease, recommends Bactrim p.o. x [address] Reid, he evaluated scan results and okays for DC. Patient can follow-up as outpatient with him We will continue with taper dose of steroids F/U Dr. Reid, Dr. Orourke Diet-heart healthy Activity-as tolerated Code Status: Full code Discussed Condition With: RN, pt, CM Discharge Planning: waiting for ID, poss dc today or tomorrow
--- NOTE | 2018-03-13 14:18 | P.PNID ---
Subjective Remarks: Patient is a 72-year-old male, presented to the hospital complaining of 3-week history of worsening shortness of breath. He denies any cough or chest congestion or any chest pain. He also noted some on and off pain in his suprapubic region, and he has a suprapubic catheter. It gets changed once a month, and it was last changed close to about a month ago. A nurse comes to his home and changes the catheter. He has had some low-grade fevers at home. He has not had any nausea or vomiting. He thinks the last time he had a urinary tract infection was about a year ago. Since admission he has not had any fever. His WBC was initially 11,000, and is down to normal. Urinalysis is showing evidence of UTI. CT of the abdomen and pelvis is showing evidence of bilateral hydronephrosis. Urology has seen the patient, and has ordered a renal scan. He has had previous history of recurrent UTI, and the last UTI recorded here is from 2015, and at that time he had a Proteus ESBL positive organism. Patient currently is on IV Zosyn. Overall his shortness of breath has improved. His chest x-ray on admission showed cardiomegaly with some stable bibasilar densities. SPC was changed this morning. Infectious disease consultation has been requested to assist with evaluation and treatment of UTI, and patient having prior history of ESBL positive organisms. Notes reviewed Temps ok Feels much better Stated he had caught up on his sleep last night and today Repeat Ua with less pyuria, C/S MRSA Renal scan report noted - findings of obstruction UC mixed rafael BC negative WBC normal Creatinine better Antibiotics: Zosyn Zithromax Lines: PIV Past Medical History: Afib COPD (chronic obstructive pulmonary disease) Colostomy in place ESBL (extended spectrum beta-lactamase) producing bacteria infection Osteomyelitis Paraplegia Recurrent UTI Suprapubic catheter H/O cardiac radiofrequency ablation Allergies/Adverse Reactions: Allergies *MDRO Multi-Drug Resistant Organism Adverse Reaction (Severe, Uncoded 03/08/18 18:27) Hives MRSA (decubitis) - 04/2014; (buttock wound) - 07/2014; (urine) - 05/2015 ESBL +Proteus Mirabilis (urine-09/2015) Objective Vital Signs 03/12/18 15:44 03/12/18 16:00 03/12/18 20:00 Temperature 99.2 F 98.5 F Pulse Rate 73 65 71 Respiratory Rate 16 20 22 Blood Pressure 186/100 H 178/78 H Pulse Oximetry 94 L 93 L 03/12/18 21:03 03/13/18 00:00 03/13/18 03:25 Temperature 97.8 F Pulse Rate 64 71 76 Respiratory Rate 16 22 16 Blood Pressure 172/78 H Pulse Oximetry 95 94 L 03/13/18 04:00 03/13/18 05:50 03/13/18 06:05 Temperature 97.5 F L Pulse Rate 66 Respiratory Rate 20 Blood Pressure 179/84 H 169/80 H 159/74 H Pulse Oximetry 96 03/13/18 08:00 03/13/18 11:32 03/13/18 12:00 Temperature 97.3 F L 97.7 F Pulse Rate 60 55 L Respiratory Rate 18 18 Blood Pressure 163/78 H 163/76 H Pulse Oximetry 97 97 98 Intake & Output 03/12/18 03/13/18 03/13/18 18:59 06:59 18:59 Intake Total 560 / 560 200 / 200 Output Total 300 / 300 125 / 125 Balance 260 / 260 75 / 75 Weight 113.6 kg Intake: IV 200 / 200 200 / 200 Zosyn 4.5 GM Premix 4.5 gm In 200 / 200 200 / 200 100 ml @ 200 mls/hr IV.SIG Q6H COUNTS INCLUDE 234 BEDS AT THE [facility] Rx#:[id number] Oral 360 / 360 Output: Urine 300 / 300 125 / 125 Stool 0 / 0 Other: # Bowel Movements 1 03/08/18 20:05 Blood - Peripheral Aerobic Blood Culture - Final No growth in 5 days 03/08/18 20:05 Blood - Peripheral Anaerobic Blood Culture - Final No growth in 5 days 03/08/18 20:00 Blood - Peripheral Aerobic Blood Culture - Final No growth in 5 days 03/08/18 20:00 Blood - Peripheral Anaerobic Blood Culture - Final No growth in 5 days 03/10/18 11:09 Catheterized Urine Urine Culture - Final S. aureus MRSA Imaging: ITS Impressions Chest X-Ray 03/08/18 00:00 CONCLUSION: Cardiomegaly with stable basilar density since 2016, probably scarring/fibrosis and atelectasis. Elevated left hemidiaphragm. Abdomen/Pelvis CT 03/08/18 21:56 CONCLUSION: 1. Severe bilateral hydronephrosis and hydroureter of unclear etiology. 2. Suprapubic catheter with tip in the bladder. Small to moderate amount of urine and a small stone in the bladder. 3. Large left spigelian hernia. Small fat-containing umbilical hernia. 4. No obstruction or acute inflammatory changes of the gastrointestinal tract. 5. Scattered benign appearing hepatic cysts. 6. Right lower lobe masslike opacity stable for many years and felt to be benign. Mild bibasilar atelectasis. Renal Scan w/Medication NM 03/09/18 00:00 CONCLUSION: 1. There clearly is bilaterally obstructed kidneys. The left is more function than the right but there is also delayed cortical transit and some retained activity within the dilated collecting system on the left. 2. Very little cortical transit on the right Physical Exam: GENERAL: awake and alert, not in respiratory distress. SKIN: Cool and dry. No generalized rash. HEAD: Atraumatic. Normocephalic. No temporal wasting, or tenderness. EYES: [place] conjunctiva. No petechia or hemorrhage. No scleral icterus. No injection or drainage. EARS, NOSE AND THROAT: Nose without bleeding or purulent nasal discharge. No sinus tenderness. Mucous membranes pink and moist. No oral lesions noted. NECK: Trachea midline. Supple and not tender, no meningeal signs CARDIOVASCULAR: Regular rate and rhythm. No murmurs, rubs or gallops heard RESPIRATORY: Clear to auscultation. Breath sounds equal bilaterally. No rales , wheezing or rhonchi ABDOMEN: Soft, obese, non-tender, nondistended. Bowel sounds present and normoactive. No guarding. No rebound. Has colostomy on left side and has peristomal hernia. SPC site looks ok. EXTREMITIES: No clubbing, cyanosis, or edema. No calf tenderness. Well perfused and warm. NEUROLOGICAL: Awake and alert. Cranial nerves grossly intact. No movement in his RLE, has some in LLE. Good motor strength in BUE PSYCHIATRIC: Normal affect, calm and cooperative. 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
--- NOTE | 2018-03-13 16:33 | P.DS ---
Date of admission: 03/08/18 23:32 Primary care physician: Corbin Orourke MD Attending physician on discharge: Octaviano Lang Anticipated date of discharge: 03/13/18 Brief History from admission: 72-year-old male with a history of paraplegia, chronic suprapubic catheter, diverting colostomy, COPD who presents with a 3-week history of progressively worsening shortness of breath. Denies any cough. Patient also reports sharp intermittent suprapubic pain over the past 2 days. Reports fever measured by his at home of 100.4, prompting him to come to the emergency room. Patient has indwelling suprapubic catheter. Denies any chest pain. Denies any nausea or vomiting. DS: Diagnosis - Discharge Diagnosis (1) UTI (urinary tract infection) Status: Acute (2) Hydronephrosis Status: Acute (3) Sepsis Status: Acute (4) COPD (chronic obstructive pulmonary disease) Status: Acute DS: Medications - Discharge Medications Prescriptions: prednisone 40 mg PO DAILY #10 tab sulfamethoxazole-trimethoprim [Bactrim DS] 1 tab PO BID 14 Days #28 tab DS: Summary Hospital Course: 72-year-old male with a history of paraplegia, chronic suprapubic catheter, diverting colostomy, COPD who presents with a 3-week history of progressively worsening fevers, shortness of breath, and suprapubic pain. Sepsis, complicated UTI with suprapubic catheter, : Patient is paraplegic with suprapubic catheter in place. Tachycardic/Tachypneic on admission. -UA reviewed, positive nitrates/leukocytes/WBCs/bacteria. Initial Urine culture-mixed rafael -Blood cultures with NGTD -Was give IVF hydration -Urology consulted, appreciate recommendations. -03/09atus post suprapubic catheter exchange at bedside by urology Dr. Reid -Infectious disease consult, appreciate recommendations -Put on IV Zosyn -Repeat a UA, 03/10/2018 + MRSA, sens. noted. ID started on Bactrim. Recommended to continue as outpatient for 14 days. Obstructive Uropathy with severe bilateral hydronephrosis: acute. S/p suprapubic catheter exchange at bedside, reportedly blocked with sediment. -Abd/Pelvis CT showed Severe bilateral hydronephrosis and hydroureter; Suprapubic catheter with tip in the bladder; Small to moderate amount of urine and a small stone in the bladder -Renal Scan with NM showed: There clearly is bilaterally obstructed kidneys. The left is more function than the right but there is also delayed cortical transit and some retained activity within the dilated collecting system on the left. Very little cortical transit on the right -Urology consulted, recommended outpatient follow up Mild COPD Exacerbation: patient endorsing SOB on arrival Complained of postnasal drip, wheezing, cough CXR no infection, mild cardiomegaly. -Was put on prednisone 40 mg x 5 days, duo nebs, ISS as well as Flonase -Sx improved, was sent home with tapering dose of prednisone. Already on duonebs. Paraplegia/Chronic Pain: chronic -continued patient's home meds including Cymbalta, Lyrica, and Tramadol prn -specialty bed ordered -Had Increasing low back pain, added Percocet 5/325 1 tab p.o. every 4 as needed. Pt. became confused, Percocet discontinued. Mentation improved Anxiety-worse at night, exacerbates shortness of breath. Xanax 0.25 mg p.o. every 8 as needed Hypertension, blood pressure elevated at times Continue with metoprolol 100 mg p.o. twice daily Added Vasotec as needed Case management consulted for discharge planning Patient symptoms improved, no fever, no leukocytosis Less short of breath with wheezing Was discharged home with home health care in stable condition Instructed to follow-up with Dr. Orourke and Dr. Reid - Time Spent with Patient Total time spent providing and/or coordinating discharge services: 40 minutes Greater than 30 minutes - Quality: VTE Deep Vein Thrombosis/Pulmonary Embolism Present on Admission: No Exam Vital signs: Vital Signs 03/12/18 20:00 03/12/18 21:03 03/13/18 00:00 Temperature 98.5 F 97.8 F Pulse Rate 71 64 71 Respiratory Rate 22 16 22 Blood Pressure 178/78 H 172/78 H Pulse Oximetry 93 L 95 94 L 03/13/18 03:25 03/13/18 04:00 03/13/18 05:50 Temperature 97.5 F L Pulse Rate 76 66 Respiratory Rate 16 20 Blood Pressure 179/84 H 169/80 H Pulse Oximetry 96 03/13/18 06:05 03/13/18 08:00 03/13/18 11:32 Temperature 97.3 F L Pulse Rate 60 Respiratory Rate 18 Blood Pressure 159/74 H 163/78 H Pulse Oximetry 97 97 03/13/18 12:00 Temperature 97.7 F Pulse Rate 55 L Respiratory Rate 18 Blood Pressure 163/76 H Pulse Oximetry 98 Intake & Output 03/12/18 03/13/18 03/13/18 18:59 06:59 18:59 Intake Total 560 / 560 200 / 200 100 / 100 Output Total 300 / 300 125 / 125 Balance 260 / 260 75 / 75 100 / 100 Weight 113.6 kg Intake: IV 200 / 200 200 / 200 100 / 100 Zosyn 4.5 GM Premix 4.5 gm In 200 / 200 200 / 200 100 / 100 100 ml @ 200 mls/hr IV.SIG Q6H VENKAT Rx#:[id number] Oral 360 / 360 Output: Urine 300 / 300 125 / 125 Stool 0 / 0 Other: # Bowel Movements 1 Results Procedures completed during hospitalization: 03/09/18uprapubic catheter exchange at bedside by urology Dr. Reid - Impressions ITS Impressions Chest X-Ray 03/08/18 00:00 CONCLUSION: Cardiomegaly with stable basilar density since 2016, probably scarring/fibrosis and atelectasis. Elevated left hemidiaphragm. Abdomen/Pelvis CT 03/08/18 21:56 CONCLUSION: 1. Severe bilateral hydronephrosis and hydroureter of unclear etiology. 2. Suprapubic catheter with tip in the bladder. Small to moderate amount of urine and a small stone in the bladder. 3. Large left spigelian hernia. Small fat-containing umbilical hernia. 4. No obstruction or acute inflammatory changes of the gastrointestinal tract. 5. Scattered benign appearing hepatic cysts. 6. Right lower lobe masslike opacity stable for many years and felt to be benign. Mild bibasilar atelectasis. Renal Scan w/Medication NM 03/09/18 00:00 CONCLUSION: 1. There clearly is bilaterally obstructed kidneys. The left is more function than the right but there is also delayed cortical transit and some retained activity within the dilated collecting system on the left. 2. Very little cortical transit on the right Discharge Plan - Discharge Disposition Patient Disposition: Disch W/Home Health Service - Discharge Condition Condition: Stable - Discharge Order Discharge Orders: Discharge Order (Routine); Ordered 11/05/18 Ordered By: Freya Stevens - Discharge Details Anticipated Discharge Date: 03/13/18 - Physicians Team Primary Care Provider: Corbin Orourke V Attending Provider: Octaviano Lang Other Providers: Tommy Sanders ; Claire Velarde MD ; Randy Reid DO ; [facility]
[2018-03-13] MEDS: Umeclindinium 62.5 MCG/Vilanterol 25 MCG Inhaler INH SCH (18:04)
== END 2018-03-13 19:00 | disposition home health service (06) ==
LOC: NEPC 17:16 → NEDA 23:32 → NEPHCDU 03-09 01:23 → N06 03-09 01:25 → NEPHCDU 03-09 01:38 → N04 03-11 05:47
PROVIDERS: ADMIT Family Medicine; ATTEND Family Medicine